=== PATIENT | male | born 1940 | race Caucasian/White ===

== ENCOUNTER 2016-09-02 10:32 | Observation (INO) | payer MEDICARE, BC ==
[~2016-09-02] VITALS: Ht 185.4 cm; Wt 111.0 kg
[2016-09-02 10:34] VITALS: BP 187/87; PULSE 65; RESP 17; TEMP 98.2; O2SAT 98
[2016-09-02 12:08] VITALS: BP 200/94; PULSE 63; RESP 24; O2SAT 99
[2016-09-02] MEDS ORDERED: SODIUM CHLORIDE 0.9% FLUSH 10 ML FLUSH IVF PRN (12:15)
[2016-09-02] MEDS ORDERED: ASPIRIN 81 MG CHEW TAB PO ONE (12:15)
[2016-09-02] MEDS ORDERED: RANI150T PO (12:17)
[2016-09-02] MEDS ORDERED: ASPI325T PO (12:17)
[2016-09-02] MEDS ORDERED: TAMS0.4C4 PO (12:17)
[2016-09-02] MEDS ORDERED: KOMB5TAB2 PO (12:17)
[2016-09-02] MEDS ORDERED: PIOG15TA5 PO ×2 (12:17)
[2016-09-02] MEDS ORDERED: ATOR10TA15 PO (12:17)
[2016-09-02] MEDS ORDERED: BENA10TA PO (12:17)
--- NOTE | 2016-09-02 12:22 | PD ---
HPI Chief Complaint: Cardiac Complaint Time Seen by Provider: 11:55 Travel History International Travel<30 days: No Contact w/Intl Traveler<30days: No Traveled to known affect area: No History of Present Illness HPI The patient is a 76-year-old male who presents emergency department for admission to the chest pain Center. The patient states over the last several days he has had increasing shortness of breath with exertion, lightheadedness, dizziness, and increasing fatigue. The patient states his symptoms are worse with exertion and mildly alleviated at rest. He denies any chest pain accompanying the shortness of breath. He does have a history of hypertension, hyperlipidemia, diabetes, but denies any known history of coronary artery disease. The patient was seen by his physician earlier today, Dr. Kunal Toth, who referred him to the emergency department for admission to the chest pain Center. The patient denies any current chest pain, but does note exertional shortness of breath. Patient also states he was flushed with his exertional shortness of breath, but denies any actual diaphoresis, nausea, vomiting, or abdominal pain. PFSH Past Medical History Diabetes: Yes Patient Takes Glucophage: Yes Hypertension: Yes Influenza Vaccination: Yes Past Surgical History Other Surgery: Yes (HEMORRHOIDECTOMY) Social History Alcohol Use: No Tobacco Use: No Substance Use: No Allergies-Medications (Allergen,Severity, Reaction): Coded Allergies: No Known Allergies (Unverified , 09/02/16) Reported Meds & Prescriptions Reported Meds & Active Scripts Active Reported Tamsulosin (Tamsulosin HCl) 0.4 Mg Cap 0.4 Mg PO DAILY Pioglitazone (Pioglitazone HCl) 15 Mg Tab 15 Mg PO HS Pioglitazone (Pioglitazone HCl) 15 Mg Tab 15 Mg PO DAILY Atorvastatin (Atorvastatin Calcium) 10 Mg Tab 10 Mg PO DAILY Benazepril (Benazepril HCl) 10 Mg Tab 10 Mg PO HS Kombiglyze Xr (Saxagliptin-Metformin ER) 5-1,000 Mg Tab 1 Tab PO HS Ranitidine (Ranitidine HCl) 150 Mg Tab 150 Mg PO BID Aspirin 325 Mg Tab 325 Mg PO DAILY Review of Systems Except as stated in HPI: all other systems reviewed are Neg General / Constitutional: No: Fever HENT: Positive: Lightheadedness Cardiovascular: Positive: Dyspnea on exertion, No: Chest Pain or Discomfort, Diaphoresis Respiratory: Positive: Shortness of Breath Gastrointestinal: No: Nausea, Vomiting, Abdominal Pain Musculoskeletal: No: Edema Neurologic: Positive: Dizziness Physical Exam Narrative GENERAL: Awake, alert, very pleasant 76-year-old male who appears his stated age and is in no acute respiratory distress. SKIN: Focused skin assessment warm/dry. HEAD: Atraumatic. Normocephalic. EYES: Pupils equal and round. No scleral icterus. No injection or drainage. ENT: No nasal bleeding or discharge. Mucous membranes pink and moist. NECK: Trachea midline. No JVD. CARDIOVASCULAR: Regular rate and rhythm. No murmur appreciated. RESPIRATORY: No accessory muscle use. Clear to auscultation. Breath sounds equal bilaterally. GASTROINTESTINAL: Abdomen soft, non-tender, nondistended. No rebound tenderness. MUSCULOSKELETAL: No obvious deformities. No clubbing. No cyanosis. No edema. NEUROLOGICAL: Awake and alert. No obvious cranial nerve deficits. Motor grossly within normal limits. Normal speech. PSYCHIATRIC: Appropriate mood and affect; insight and judgment normal. Data Data Last Documented VS Vital Signs Date Time Temp Pulse Resp B/P Pulse Ox O2 Delivery O2 Flow Rate FiO2 09/02/16 12:24 70 17 181/89 98 Room Air 09/02/16 10:34 98.2 Orders Electrocardiogram (09/02/16 ) Electrocardiogram (09/02/16 12:09) B-Type Natriuretic Peptide (09/02/16 12:09) Ckmb (Isoenzyme) Profile (09/02/16 12:09) Complete Blood Count With Diff (09/02/16 12:09) Comprehensive Metabolic Panel (09/02/16 12:09) Magnesium (Mg) (09/02/16 12:09) Prothrombin Time / Inr (Pt) (09/02/16 12:09) Act Partial Throm Time (Ptt) (09/02/16 12:09) Troponin I (09/02/16 12:09) Chest, Single Ap (09/02/16 12:09) Ecg Monitoring (09/02/16 12:09) Bilateral Bp Monitoring (09/02/16 12:09) Iv Access Insert/Monitor (09/02/16 12:09) Oximetry (09/02/16 12:09) Oxygen Administration (09/02/16 12:09) Aspirin Chew (Aspirin Chew) (09/02/16 12:15) Sodium Chloride 0.9% Flush (Ns Flush) (09/02/16 12:15) Labs Laboratory Tests Test 09/02/16 12:15 White Blood Count 6.2 TH/MM3 Red Blood Count 4.59 MIL/MM3 Hemoglobin 14.1 GM/DL Hematocrit 42.3 % Mean Corpuscular Volume 92.1 FL Mean Corpuscular Hemoglobin 30.7 PG Mean Corpuscular Hemoglobin 33.4 % Concent Red Cell Distribution Width 12.9 % Platelet Count 188 TH/MM3 Mean Platelet Volume 7.8 FL Neutrophils (%) (Auto) 68.5 % Lymphocytes (%) (Auto) 19.2 % Monocytes (%) (Auto) 8.7 % Eosinophils (%) (Auto) 2.8 % Basophils (%) (Auto) 0.8 % Neutrophils # (Auto) 4.3 TH/MM3 Lymphocytes # (Auto) 1.2 TH/MM3 Monocytes # (Auto) 0.5 TH/MM3 Eosinophils # (Auto) 0.2 TH/MM3 Basophils # (Auto) 0.1 TH/MM3 CBC Comment DIFF FINAL Differential Comment Prothrombin Time 11.3 SEC Prothromb Time International 1.0 RATIO Ratio Activated Partial 28.9 SEC Thromboplast Time Sodium Level 137 MEQ/L Potassium Level 3.8 MEQ/L Chloride Level 103 MEQ/L Carbon Dioxide Level 26.5 MEQ/L Anion Gap 8 MEQ/L Blood Urea Nitrogen 12 MG/DL Creatinine 0.88 MG/DL Estimat Glomerular Filtration 84 ML/MIN Rate Random Glucose 129 MG/DL Calcium Level 9.1 MG/DL Magnesium Level 1.9 MG/DL Total Bilirubin 0.5 MG/DL Aspartate Amino Transf 13 U/L (AST/SGOT) Alanine Aminotransferase 23 U/L (ALT/SGPT) Alkaline Phosphatase 58 U/L Total Creatine Kinase 88 U/L Troponin I LESS THAN 0.02 NG/ML Total Protein 7.6 GM/DL Albumin 4.0 GM/DL [facility] Medical Decision Making Medical Screen Exam Complete: Yes Emergency Medical Condition: Yes Medical Record Reviewed: Yes Interpretation(s) EKG reveals normal sinus rhythm with a rate of 64. Inverted T-wave noted in lead aVL. Last Impressions Chest X-Ray 09/02/16 1209 Signed Impressions: Service Date/Time: Friday, September 02, 2016 12:25 - CONCLUSION: No acute disease. Cam Jha MD Laboratory Tests Test 09/02/16 12:15 White Blood Count 6.2 TH/MM3 Red Blood Count 4.59 MIL/MM3 Hemoglobin 14.1 GM/DL Hematocrit 42.3 % Mean Corpuscular Volume 92.1 FL Mean Corpuscular Hemoglobin 30.7 PG Mean Corpuscular Hemoglobin 33.4 % Concent Red Cell Distribution Width 12.9 % Platelet Count 188 TH/MM3 Mean Platelet Volume 7.8 FL Neutrophils (%) (Auto) 68.5 % Lymphocytes (%) (Auto) 19.2 % Monocytes (%) (Auto) 8.7 % Eosinophils (%) (Auto) 2.8 % Basophils (%) (Auto) 0.8 % Neutrophils # (Auto) 4.3 TH/MM3 Lymphocytes # (Auto) 1.2 TH/MM3 Monocytes # (Auto) 0.5 TH/MM3 Eosinophils # (Auto) 0.2 TH/MM3 Basophils # (Auto) 0.1 TH/MM3 CBC Comment DIFF FINAL Differential Comment Prothrombin Time 11.3 SEC Prothromb Time International 1.0 RATIO Ratio Activated Partial 28.9 SEC Thromboplast Time Sodium Level 137 MEQ/L Potassium Level 3.8 MEQ/L Chloride Level 103 MEQ/L Carbon Dioxide Level 26.5 MEQ/L Anion Gap 8 MEQ/L Blood Urea Nitrogen 12 MG/DL Creatinine 0.88 MG/DL Estimat Glomerular Filtration 84 ML/MIN Rate Random Glucose 129 MG/DL Calcium Level 9.1 MG/DL Magnesium Level 1.9 MG/DL Total Bilirubin 0.5 MG/DL Aspartate Amino Transf 13 U/L (AST/SGOT) Alanine Aminotransferase 23 U/L (ALT/SGPT) Alkaline Phosphatase 58 U/L Total Creatine Kinase 88 U/L Troponin I LESS THAN 0.02 NG/ML Total Protein 7.6 GM/DL Albumin 4.0 GM/DL Differential Diagnosis Differential diagnosis includes acute coronary syndrome, cardiomyopathy, congestive heart failure, deconditioning, pulmonary embolism, pleural effusion. Narrative Course IV was established, labs are drawn and sent, and the patient was placed on cardiac telemetry monitoring and continuous pulse oximetry monitoring. EKG was ordered and interpreted. Chest x-ray was obtained. The patient was administered aspirin. The patient's chest x-ray was negative. Patient has inverted T waves noted in lead aVL. Initial troponin was negative. I discussed the patient with the patient's primary physician, Dr. Kunal Toth, who requests admission to the chest pain Center for serial cardiac enzymes and further evaluation by cardiology for a stress test. I discussed the plan of care with the patient who is comfortable with 23 hour observation to chest pain Center. Physician Communication Physician Communication The patient will be a 23 hour observation to the chest pain Center for serial cardiac enzymes and further evaluation by cardiology. Diagnosis Primary Impression: Exertional dyspnea Admitting Information Admitting Physician Requests: Observation Condition: Stable Manuel Newberry MD Sep 02, 2016 12:22
[2016-09-02 12:24] VITALS: BP 181/89; PULSE 70; RESP 17; O2SAT 98
[2016-09-02 12:36] LABS: AUTOMATED NEUTROPHIL # 4.3 TH/MM3 (1.8-7.7); BASOPHIL # 0.1 TH/MM3 (0-0.2); BASOPHIL % 0.8 % (0.0-2.0); EOSINOPHIL # 0.2 TH/MM3 (0-0.4); EOSINOPHIL % 2.8 % (0.0-4.0); HEMATOCRIT 42.3 % (39.0-51.0); HEMO FLAGS DIFF FINAL; LYMPH % 19.2 % (9.0-44.0); LYMPHOCYTE # 1.2 TH/MM3 (1.0-4.8); MEAN CELL VOLUME 92.1 FL (80.0-100.0); MEAN CORPUSCULAR HEMOGLOBIN 30.7 PG (27.0-34.0); MEAN CORPUSCULAR HGB CONC 33.4 % (32.0-36.0); MONO % 8.7 % (0.0-8.0); NEUT % 68.5 % (16.0-70.0); PLATELET COUNT 188 TH/MM3 (150-450); RED BLOOD COUNT 4.59 MIL/MM3 (4.50-5.90); RED CELL DISTRIBUTION WIDTH 12.9 % (11.6-17.2); WHITE BLOOD COUNT 6.2 TH/MM3 (4.0-11.0)
[2016-09-02 12:46] LABS: ALT (GPT) 23 U/L (12-78); ANION GAP 8 MEQ/L (5-15); APTT (PATIENT) 28.9 SEC (24.3-30.1); AST (GOT) 13 U/L (15-37); BICARBONATE 26.5 MEQ/L (21.0-32.0); BLOOD UREA NITROGEN 12 MG/DL (7-18); CHLORIDE 103 MEQ/L (98-107); GLOMERULAR FILTRATION RATE 84 ML/MIN (>89); MAGNESIUM 1.9 MG/DL (1.5-2.5); POTASSIUM 3.8 MEQ/L (3.5-5.1); PROTHROMBIN TIME - PATIENT 11.3 SEC (9.8-11.6); SODIUM (NA) 137 MEQ/L (136-145)
[2016-09-02 12:49] LABS: ALKALINE PHOSPHATASE 58 U/L (45-117); TOTAL BILIRUBIN ADULT 0.5 MG/DL (0.2-1.0)
--- NOTE | 2016-09-02 12:49 | RADRPT ---
EXAM DATE/TIME: 09/02/2016 12:25 [facility] COMPARISON: No previous studies available for comparison. INDICATIONS : Chest pain. MEDICAL HISTORY : None. SURGICAL HISTORY : None. ENCOUNTER: Initial ACUITY: 2 days PAIN SCORE: 5/10 LOCATION: Bilateral chest FINDINGS: A single view of the chest demonstrates the lungs to be symmetrically aerated without evidence of mas s, infiltrate or effusion. The cardiomediastinal contours are unremarkable. Osseous structures are intact. CONCLUSION: No acute disease. Cam Jha MD on September 02, 2016 at 12:47 Board Certified Radiologist. This report was verified electronically.
[2016-09-02 12:50] LABS: CREATINE KINASE 88 U/L (39-308)
[2016-09-02 13:59] VITALS: BP 178/82; PULSE 58; RESP 14; O2SAT 98
--- NOTE | 2016-09-02 14:17 | EKG ---
Date Performed: 09/02/2016 Time Performed: 10:57:05 PTAGE: 76 years EKG: Sinus rhythm LEFT ANTERIOR FASCICULAR BLOCK POSSIBLE LATERAL MYOCARDIAL INFARCTION ABNORMAL ECG NO PREVIOUS TRACING DOCTOR: Marcel Sotomayor Interpretating Date/Time 09/02/2016 14:16:57
[2016-09-02] MEDS ORDERED: BENA5TAB PO (14:26)
[2016-09-02] MEDS ORDERED: PANTOPRAZOLE SOD 40 MG DELAYED RELEASE TAB PO SCH (14:30)
[2016-09-02] MEDS ORDERED: SODIUM CHLORIDE 0.9% FLUSH 5 ML FLUSH IVF PRN (14:30)
[2016-09-02] MEDS ORDERED: ACETAMINOPHEN 500 MG CPLT PO PRN (14:30)
[2016-09-02] MEDS ORDERED: ALPRAZolam 0.25 MG TAB PO PRN (14:30)
[2016-09-02] MEDS ORDERED: ACETAMINOPHEN/HYDROcodone 325 MG/7.5 MG TAB PO PRN (14:30)
[2016-09-02] MEDS ORDERED: ONDANSETRON HCL 4 MG/2 ML VIAL IV PRN (14:30)
[2016-09-02] MEDS ORDERED: LISINOPRIL 5 MG TAB PO SCH (14:45)
--- NOTE | 2016-09-02 14:45 | HHI.HP ---
[facility] Primary Care Physician Kunal Toth MD Chief Complaint Shortness of breath with exertion History of Present Illness This is a 76-year-old male with history of hypertension, hyperlipidemia, and diabetes presents to the ED at the request of his primary care physician Dr. Kunal Toth to be admitted to the chest pain center. He states that for the last 2 days he's had dyspnea on exertion. His exertion is walking inside of his house. He states it is unusual for him to be short of breath with activity. He also states that for the past month he's been fatigued. Denies nausea or diaphoresis but states that yesterday his face felt flushed. Denies recent illness. Denies fevers or chills. Denies recent travel. Review of Systems General: Patient denies fevers, chills recent, and recent travel HEENT: Patient denies headache, sore throat, difficulty swallowing. Cardiovascular: Has the chest discomfort as mentioned above. Denies sensation of heart beating rapidly or irregularly. No syncope. Denies diaphoresis. Respiratory: Complains dyspnea on exertion. Denies coughing wheezing or hemoptysis. GI: Patient denies nausea, vomiting, diarrhea, abdominal pain, bloody stools. Musculoskeletal: Patient denies joint pain or edema. Denies calf pain or edema. Neurovascular: Patient denies numbness, tingling, weakness in extremities. Denies headache. Endocrine: Denies polyuria and polydipsia. Hematologic: Denies easy bruising. Skin: Denies rash or itching. Past Family Social History Allergies: Coded Allergies: No Known Allergies (Unverified , 09/02/16) Past Medical History Hypertension, diabetes, hyperlipidemia. Denies CAD. Past Surgical History Noncontributory. Reported Medications Reported Meds & Active Scripts Active Reported Benazepril (Benazepril HCl) 5 Mg Tab 5 Mg PO BID Tamsulosin (Tamsulosin HCl) 0.4 Mg Cap 0.4 Mg PO DAILY Pioglitazone (Pioglitazone HCl) 15 Mg Tab 15 Mg PO HS Pioglitazone (Pioglitazone HCl) 15 Mg Tab 15 Mg PO DAILY Atorvastatin (Atorvastatin Calcium) 10 Mg Tab 10 Mg PO DAILY Kombiglyze Xr (Saxagliptin-Metformin ER) 5-1,000 Mg Tab 1 Tab PO HS Ranitidine (Ranitidine HCl) 150 Mg Tab 150 Mg PO BID Aspirin 325 Mg Tab 325 Mg PO DAILY Active Ordered Medications Current Medications Medications (Trade) Dose Ordered Sig/Earl Route Start Time Stop Time Status Last Admin (NS Flush) 2 ml UNSCH PRN IVF 09/02/16 12:15 Family History His father at age 64 of a myocardial infarction. Social History Patient is a nonsmoker. Denies alcohol or illicit drug use. He is . Physical Exam Vital Signs Vital Signs Date Time Temp Pulse Resp B/P Pulse Ox O2 Delivery O2 Flow Rate FiO2 09/02/16 13:59 58 14 178/82 98 Room Air 09/02/16 12:24 70 17 181/89 98 Room Air 09/02/16 12:08 63 24 200/94 99 Room Air 09/02/16 10:34 98.2 65 17 187/87 98 Physical Exam GENERAL: This is a well-nourished, well-developed patient, in no apparent distress. Patient speaks in clear complete sentences. Patient is pleasant. HEENT: Head is atraumatic and normocephalic. Neck is supple without lymphadenopathy and trachea is midline. No JVD or carotid bruits. CARDIOVASCULAR: Regular rate and rhythm without murmurs, gallops, or rubs. RESPIRATORY: Clear to auscultation. Breath sounds equal bilaterally. No wheezes , rales, or rhonchi. Chest wall is nontender. No use of accessory muscles. GASTROINTESTINAL: Abdomen is nontender, nondistended. Abdomen soft. No obvious pulsatile mass or bruit. No CVA tenderness. Strong femoral pulses bilaterally. Normal bowel sounds in all quadrants. MUSCULOSKELETAL: Patient is moving upper and lower extremities freely. No calf tenderness or edema, no Homans sign. Strong pulses in upper and lower extremities. NEUROLOGICAL: Patient is alert and oriented. Cranial nerves 2-12 are grossly intact. No focal deficits and speech is clear. SKIN: No rash and turgor is normal. Laboratory Laboratory Tests Test 09/02/16 12:15 White Blood Count 6.2 Red Blood Count 4.59 Hemoglobin 14.1 Hematocrit 42.3 Mean Corpuscular Volume 92.1 Mean Corpuscular Hemoglobin 30.7 Mean Corpuscular Hemoglobin 33.4 Concent Red Cell Distribution Width 12.9 Platelet Count 188 Mean Platelet Volume 7.8 Neutrophils (%) (Auto) 68.5 Lymphocytes (%) (Auto) 19.2 Monocytes (%) (Auto) 8.7 Eosinophils (%) (Auto) 2.8 Basophils (%) (Auto) 0.8 Neutrophils # (Auto) 4.3 Lymphocytes # (Auto) 1.2 Monocytes # (Auto) 0.5 Eosinophils # (Auto) 0.2 Basophils # (Auto) 0.1 CBC Comment DIFF FINAL Differential Comment Prothrombin Time 11.3 Prothromb Time International 1.0 Ratio Activated Partial 28.9 Thromboplast Time Sodium Level 137 Potassium Level 3.8 Chloride Level 103 Carbon Dioxide Level 26.5 Anion Gap 8 Blood Urea Nitrogen 12 Creatinine 0.88 Estimat Glomerular Filtration 84 Rate Random Glucose 129 Calcium Level 9.1 Magnesium Level 1.9 Total Bilirubin 0.5 Aspartate Amino Transf 13 (AST/SGOT) Alanine Aminotransferase 23 (ALT/SGPT) Alkaline Phosphatase 58 Total Creatine Kinase 88 Troponin I LESS THAN 0.02 B-Type Natriuretic Peptide 90 Total Protein 7.6 Albumin 4.0 Result Diagram: 09/02/16 1215 09/02/16 1215 Imaging Last 24 hours Impressions Chest X-Ray 09/02/16 1209 Signed Impressions: Service Date/Time: Friday, September 02, 2016 12:25 - CONCLUSION: No acute disease. aCm Jha MD Course Initial EKG has sinus rhythm without significant ST segment depressions or elevations. Assessment and Plan Assessment and Plan * Dyspnea on exertion: Patient denies chest discomfort. Initial troponin is normal. Patient has been seen by Dr. Byron Diego of cardiology in the chest pain center and will undergo a Lexiscan . We also will get a d-dimer. If these results are normal he'll be discharged home with instructions to follow- up with his PCP. * Hypertension: Patient did not take his medication this morning. This will be restarted. * Hyperlipidemia: Continue current medications. * Diabetes: We'll hold oral medication and cover with sliding scale insulin coverage. He will resume his medication discharge. Follow a diabetic diet. Patient is agreeable to this plan. Stable at this time. Ryder Meraz Sep 02, 2016 14:45
[2016-09-02] MEDS ORDERED: REGADENOSON INJ 0.4 MG/5 ML SYR ONE (15:47)
--- NOTE | 2016-09-02 17:02 | HHI.DCPOC ---
Discharge Care Plan Diagnosis: (1) Dyspnea on exertion (2) Hypertension (3) DM (diabetes mellitus) (4) Hyperlipidemia Goals to Promote Your Health * To prevent worsening of your condition and complications * To maintain your health at the optimal level Directions to Meet Your Goals Take your medications as prescribed Follow your dietary instruction Follow activity as directed Keep your appointments as scheduled Take your immunizations and boosters as scheduled If your symptoms worsen call your PCP, if no PCP go to Urgent Care Center or Emergency Room Smoking is Dangerous to Your Health. Avoid second hand smoke Call the 24-hour hour crisis hotline for domestic abuse at Ryder Meraz Sep 02, 2016 17:02
[2016-09-02 17:30] VITALS: BP 167/82; PULSE 67; RESP 16; TEMP 97.9; O2SAT 96
--- NOTE | 2016-09-02 17:37 | RADRPT ---
EXAM DATE/TIME: 09/02/2016 15:36 [facility] COMPARISON: No previous studies available for comparison. INDICATIONS : Dyspnea with exertion, lightheadedness, dizziness and fatigue for several days. Abnormal EKG. DOSE: 35.0 mCi Tc99m Myoview at stress. 8.7 mCi Tc99m Myoview at rest. 0.4 mg Lexiscan STRESS SYMPTOMS: Dyspnea. EJECTION FRACTION: 57% MEDICAL HISTORY : Hypertension. Hypercholesterolemia. Diabetes mellitus type 2. SURGICAL HISTORY : Hemorrhoidectomy. ENCOUNTER: Initial ACUITY: 4 - 6 days PAIN SCALE: 0/10 LOCATION: chest TECHNIQUE: The patient underwent pharmacologic stress with infusion of prescribed dose. Continuous ECG tracing was monitored during stress. Gated SPECT imaging was performed after stress and conventional SPECT i maging was performed at rest. The examination was performed on a SPECT/CT scanner, both attenuation and non-corrected datasets were reviewed. FINDINGS: DISTRIBUTION: The maximum perfused segment at stress is in the inferior wall. The summed stress score equals zero. PERFUSION STUDY: The pattern of perfusion at stress is within normal limits. GATED STUDY: There is intact wall motion and thickening without hypokinetic or dyskinetic segments. CONCLUSION: 1. No fixed or reversible wall defects to suggest ischemia or infarction. 2. Normal wall motion and calculated ejection fraction. RISK CATEGORY: Low (<1% Annual Mortality Rate) Felton Luque MD on September 02, 2016 at 17:32 Board Certified Radiologist. This report was verified electronically.
[2016-09-02 18:00] VITALS: PULSE 75
[2016-09-02] MEDS ORDERED: SODIUM CHLORIDE 0.9% FLUSH 5 ML FLUSH IVF SCH (21:00)
[2016-09-03] MEDS ORDERED: ASPIRIN 325 MG TAB PO SCH ×2 (09:00)
[2016-09-03] MEDS ORDERED: TAMSULOSIN HCL 0.4 MG CAP PO SCH (09:00)
[2016-09-03] MEDS ORDERED: ATORVASTATIN 10 MG TAB PO SCH (09:00)
--- NOTE | 2016-09-03 09:53 | EKG ---
Date Performed: 09/02/2016 Time Performed: 15:16:34 PTAGE: 76 years EKG: SINUS BRADYCARDIA LEFT ANTERIOR FASCICULAR BLOCK LEFT VENTRICULAR HYPERTROPHY AND ST-T SOMERS GE PROBABLE LATERAL MYOCARDIAL INFARCTION ABNORMAL ECG PREVIOUS TRACING : 09/02/2016 10.57 Since previous tracing, no significant change noted DOCTOR: Kayli Arreola Interpretating Date/Time 09/03/2016 09:53:02
--- NOTE | 2016-09-03 09:54 | TR ---
Date Performed: 09/02/2016 Time Performed: 16:19:09 DOCTOR: Kayli Arreola DRUG LIST: CLINICAL HISTORY: REASON FOR TEST: REASON FOR ENDING: OBSERVATION: CONCLUSION: Lexiscan stress test was performed under standard four minute protocol. Radionuclid e was injected one minute prior to ending the test. No electrocardiographic abormalities were present to suggest ischemia. Nuclear imaging and interpretation are pending. COMMENTS:
== END 2016-09-02 19:39 | disposition home or self-care (01) ==
LOC: NEPC 10:32 → NEDA 13:04 → NEPHCDU 17:28
PROVIDERS: ADMIT Internal Medicine Cardiovascular Disease; ATTEND Internal Medicine Cardiovascular Disease
DX: R06.09 Other forms of dyspnea (principal); R94.31 Abnormal electrocardiogram [ECG] [EKG]; R53.83 Other fatigue; I10 Essential (primary) hypertension; E78.5 Hyperlipidemia, unspecified; E11.9 Type 2 diabetes mellitus without complications; Z79.82 Long term (current) use of aspirin
CPT/HCPCS: 71010; 78452; 80053; 82550; 83735; 83880; 84484; 85025; 85379; 85610; 85730; 93005; 93017; 99285; A9502; G0378; J2785

== ENCOUNTER 2016-09-14 11:41 | Inpatient (IN) | payer MEDICARE, BC ==
[2016-09-14] VITALS (7 sets, daily range): BP systolic 105–155; BP diastolic 61–114; PULSE 66–141; RESP 18–24; TEMP 97.5–98.7; O2SAT 95–98
[~2016-09-14] VITALS: Ht 185.4 cm; Wt 114.4 kg
[~2016-09-14 11:41] MED LIST: ASPI325T PO; ATOR10TA15 PO; BENA5TAB PO; KOMB5TAB2 PO; PIOG15TA5 PO; RANI150T PO; TAMS0.4C4 PO
--- NOTE | 2016-09-14 11:47 | PD ---
Physical Exam Date Seen by Provider: September 14, 2016 Time Seen by Provider: 11:45 Narrative 76 year old male presents to the emergency department for evaluation of SOB and bloating that started this morning. Reports history of irregular heart beat. Patient states recently started on metoprolol. No chest pain. He has an appointment with Dr. Espinal on Friday. Vital signs reviewed. Patient seen in triage, awaiting bed placement. Data Data Last Documented VS Vital Signs Date Time Temp Pulse Resp B/P Pulse Ox O2 Delivery O2 Flow Rate FiO2 09/14/16 11:44 97.5 126 24 112/79 97 Room Air [facility] [place] Supervised Visit with SMILEY: Shannon Sanchez September 14, 2016 11:47
[2016-09-14] MEDS ORDERED: SODIUM CHLORIDE 0.9% FLUSH 10 ML FLUSH IVF PRN (12:00)
[2016-09-14 12:28] LABS: BASOPHIL # 0.1 TH/MM3 (0-0.2); BASOPHIL % 0.7 % (0.0-2.0); EOSINOPHIL # 0.1 TH/MM3 (0-0.4); EOSINOPHIL % 1.9 % (0.0-4.0); HEMATOCRIT 36.4 % (39.0-51.0); HEMO FLAGS DIFF FINAL; LYMPH % 10.2 % (9.0-44.0); LYMPHOCYTE # 0.8 TH/MM3 (1.0-4.8); MEAN CELL VOLUME 91.5 FL (80.0-100.0); MEAN CORPUSCULAR HEMOGLOBIN 32.2 PG (27.0-34.0); MEAN CORPUSCULAR HGB CONC 35.2 % (32.0-36.0); MONO % 7.3 % (0.0-8.0); NEUT % 79.9 % (16.0-70.0); PLATELET COUNT 195 TH/MM3 (150-450); RED BLOOD COUNT 3.98 MIL/MM3 (4.50-5.90); RED CELL DISTRIBUTION WIDTH 12.8 % (11.6-17.2); WHITE BLOOD COUNT 7.5 TH/MM3 (4.0-11.0)
--- NOTE | 2016-09-14 12:36 | RADRPT ---
EXAM DATE/TIME: 09/14/2016 12:24 [facility] COMPARISON: CHEST SINGLE AP, September 02, 2016, 12:25. INDICATIONS : Chest Pain MEDICAL HISTORY : None. SURGICAL HISTORY : None. ENCOUNTER: Initial ACUITY: 1 day PAIN SCORE: 5/10 LOCATION: Bilateral chest FINDINGS: PA and lateral views of the chest were obtained and demonstrate new streaky interstitial opacities in both lungs. There is mild blunting of the right costophrenic angle. The heart size is at the upper l imits of normal. The bony thorax is intact. CONCLUSION: 1. New mild streaky bilateral interstitial opacities which may represent early or mild pulmonary alexia a. 2. Mild blunting of the right costophrenic angle consistent with a small effusion. Felton Luque MD on September 14, 2016 at 12:33 Board Certified Radiologist. This report was verified electronically.
[2016-09-14 12:37] LABS: APTT (PATIENT) 30.1 SEC (24.3-30.1); INTERNATIONAL NORMALIZED RATIO 1.1 RATIO
[2016-09-14 12:44] LABS: ANION GAP 9 MEQ/L (5-15); BICARBONATE 24.1 MEQ/L (21.0-32.0); BLOOD UREA NITROGEN 16 MG/DL (7-18); CHLORIDE 101 MEQ/L (98-107); GLOMERULAR FILTRATION RATE 78 ML/MIN (>89); MAGNESIUM 1.8 MG/DL (1.5-2.5); POTASSIUM 4.4 MEQ/L (3.5-5.1); SODIUM (NA) 134 MEQ/L (136-145)
[2016-09-14] MEDS ORDERED: DILTIAZEM HCL 25 MG/5 ML VIAL IVP ONE ×2 (12:45→18:45)
[2016-09-14 12:48] LABS: CREATINE KINASE 86 U/L (39-308)
--- NOTE | 2016-09-14 12:51 | PD ---
HPI Chief Complaint: Respiratory Distress Time Seen by Provider: 12:47 Travel History International Travel<30 days: No Contact w/Intl Traveler<30days: No Traveled to known affect area: No History of Present Illness HPI 76 yo male that presents to the ED for evaluation of irregular heart rate, bloating as well as shortness of breath. Per patient she's had this for a couple days. Per patient is more severe today. Per patient he follows regularly with his PCP and he is currently on metoprolol. Per patient he feels like he is having about a reaction to it as he makes him very weak and tired. He continues to take it however. He takes no blood thinners other than aspirin. He has not seen a director of marketing operations for evaluation of any of this and actually supposed to follow with Dr. Espinal cardiology on Friday. Per patient he symptoms got more severe today so he could not wait. Patient denies any actual chest pain. Per patient he feels like his heart is palpitating. He has a history of "irregular rate him "in the past but he's never been admitted or evaluated for it other than taking the metoprolol. He does tell me that he was seen here last week for evaluation of chest pain center and he had a negative stress test at that time. He denies any recent travel. No injuries. No allergies to medication. PFSH Past Medical History Cardiac Catheterization: No Cardiovascular Problems: Yes High Cholesterol: Yes Congestive Heart Failure: No Cerebrovascular Accident: Yes (A FIB) Diabetes: Yes Hypertension: Yes Past Surgical History Coronary Artery Bypass Graft: No Other Surgery: Yes (HEMORRHOIDECTOMY) Social History Alcohol Use: No Tobacco Use: No Substance Use: No Allergies-Medications (Allergen,Severity, Reaction): Coded Allergies: No Known Allergies (Unverified , 09/14/16) Reported Meds & Prescriptions Reported Meds & Active Scripts Active Reported Benazepril (Benazepril HCl) 5 Mg Tab 5 Mg PO BID Tamsulosin (Tamsulosin HCl) 0.4 Mg Cap 0.4 Mg PO DAILY Pioglitazone (Pioglitazone HCl) 15 Mg Tab 15 Mg PO HS Pioglitazone (Pioglitazone HCl) 15 Mg Tab 15 Mg PO DAILY Atorvastatin (Atorvastatin Calcium) 10 Mg Tab 10 Mg PO DAILY Kombiglyze Xr (Saxagliptin-Metformin ER) 5-1,000 Mg Tab 1 Tab PO HS Ranitidine (Ranitidine HCl) 150 Mg Tab 150 Mg PO BID Aspirin 325 Mg Tab 325 Mg PO DAILY Review of Systems Except as stated in HPI: all other systems reviewed are Neg Physical Exam Narrative GENERAL: SKIN: Warm and dry. HEAD: Atraumatic. Normocephalic. EYES: Pupils equal and round. No scleral icterus. No injection or drainage. ENT: No nasal bleeding or discharge. Mucous membranes pink and moist. Tongue is midline. No uvula deviation. NECK: Trachea midline. No JVD. CARDIOVASCULAR: Irregular rate and rhythm. No murmurs, S3, S4. RESPIRATORY: No accessory muscle use. Clear to auscultation. Breath sounds equal bilaterally. GASTROINTESTINAL: Abdomen soft, non-tender, nondistended. Hepatic and splenic margins not palpable. MUSCULOSKELETAL: Extremities without clubbing, cyanosis, or edema. No obvious deformities. Full range of motion of the upper and lower extremities bilaterally. 2+ pulses bilaterally. NEUROLOGICAL: Awake and alert. No obvious cranial nerve deficits. Motor grossly within normal limits. Five out of 5 muscle strength in the arms and legs. Normal speech. PSYCHIATRIC: Appropriate mood and affect; insight and judgment normal. Data Data Last Documented VS Vital Signs Date Time Temp Pulse Resp B/P Pulse Ox O2 Delivery O2 Flow Rate FiO2 09/14/16 13:20 71 18 105/61 98 09/14/16 12:53 Room Air 09/14/16 11:44 97.5 Orders Complete Blood Count With Diff (09/14/16 11:49) Basic Metabolic Panel (Bmp) (09/14/16 11:49) B-Type Natriuretic Peptide (09/14/16 11:49) Act Partial Throm Time (Ptt) (09/14/16 11:49) Prothrombin Time / Inr (Pt) (09/14/16 11:49) Magnesium (Mg) (09/14/16 11:49) Ckmb (Isoenzyme) Profile (09/14/16 11:49) Troponin I (09/14/16 11:49) Iv Access Insert/Monitor (09/14/16 11:49) Electrocardiogram (09/14/16 11:49) Ecg Monitoring (09/14/16 11:49) Oximetry (09/14/16 11:49) Oxygen Administration (09/14/16 11:49) Chest, Pa & Lat (09/14/16 11:49) Sodium Chloride 0.9% Flush (Ns Flush) (09/14/16 12:00) Thyroid Stimulating Hormone (09/14/16 12:32) Diltiazem Inj (Cardizem Inj) (09/14/16 12:45) Labs Laboratory Tests Test 09/14/16 12:00 White Blood Count 7.5 TH/MM3 Red Blood Count 3.98 MIL/MM3 Hemoglobin 12.8 GM/DL Hematocrit 36.4 % Mean Corpuscular Volume 91.5 FL Mean Corpuscular Hemoglobin 32.2 PG Mean Corpuscular Hemoglobin 35.2 % Concent Red Cell Distribution Width 12.8 % Platelet Count 195 TH/MM3 Mean Platelet Volume 8.4 FL Neutrophils (%) (Auto) 79.9 % Lymphocytes (%) (Auto) 10.2 % Monocytes (%) (Auto) 7.3 % Eosinophils (%) (Auto) 1.9 % Basophils (%) (Auto) 0.7 % Neutrophils # (Auto) 6.0 TH/MM3 Lymphocytes # (Auto) 0.8 TH/MM3 Monocytes # (Auto) 0.5 TH/MM3 Eosinophils # (Auto) 0.1 TH/MM3 Basophils # (Auto) 0.1 TH/MM3 CBC Comment DIFF FINAL Differential Comment Prothrombin Time 12.0 SEC Prothromb Time International 1.1 RATIO Ratio Activated Partial 30.1 SEC Thromboplast Time Sodium Level 134 MEQ/L Potassium Level 4.4 MEQ/L Chloride Level 101 MEQ/L Carbon Dioxide Level 24.1 MEQ/L Anion Gap 9 MEQ/L Blood Urea Nitrogen 16 MG/DL Creatinine 0.94 MG/DL Estimat Glomerular Filtration 78 ML/MIN Rate Random Glucose 206 MG/DL Calcium Level 8.8 MG/DL Magnesium Level 1.8 MG/DL Total Creatine Kinase 86 U/L Troponin I LESS THAN 0.02 NG/ML B-Type Natriuretic Peptide 459 PG/ML MDM Medical Decision Making Medical Screen Exam Complete: Yes Emergency Medical Condition: Yes Medical Record Reviewed: Yes Interpretation(s) EKG shows atrial fibrillation with RVR. No sign of acute ischemia read by me and attending. CBC & BMP Diagram 09/14/16 12:00 troponin and CKMB negative BNP elevated Last Impressions Chest X-Ray 09/14/16 1149 Signed Impressions: Service Date/Time: Wednesday, September 14, 2016 12:24 - CONCLUSION: 1. New mild streaky bilateral interstitial opacities which may represent early or mild pulmonary edema. 2. Mild blunting of the right costophrenic angle consistent with a small effusion. Felton Luque MD Differential Diagnosis A. fib in RVR versus dyspnea versus A. fib versus [place] versus electrolyte abnormality Narrative Course 76-year-old male that presents to the ED for evaluation of shortness of breath and irregular rhythm. Patient was properly examined and was found to have signs and symptoms very consistent with A. fib and RVR. Case discussed in my attending who agrees with plan. Labs and imaging ordered. Patient was started on cardiazem bolus. Patient was reassessed and his heart rate has improved. Heart rate stays on the 60s and 70s with no changes. Labs and imaging did show what appears to be pulmonary edema and a high BNP. Patient does have some shortness of breath and this is concerning for CHF. Patient has no history of CHF in the past. And has never had A. fib with RVR. I recommend admission for this. This was discussed with my attending Dr. Ledezma who is in agreement with this plan. Residents were paged. Dr. Jerome agrees to admission. Patient was admitted to Dr. Bruce. Procedures EKG Prior to Arrival: No Diagnosis Primary Impression: Atrial fibrillation with RVR Additional Impression: CHF (congestive heart failure) Qualified Code: I50.9 - Acute congestive heart failure, unspecified congestive heart failure type Admitting Information Admitting Physician Requests: Admit Carlos Greene September 14, 2016 12:51
[2016-09-14] MEDS ORDERED: METO25TA3 PO (13:40)
--- NOTE | 2016-09-14 14:08 | HHI.HP ---
[facility] Service Family Medicine Primary Care Physician Kunal Toth MD Admission Diagnosis acute atrial fibrillation on RVR, acute CHF Diagnoses: International Travel<30 Days: No Contact w/Intl Traveler<30days: No Known Affected Area: No History of Present Illness This is a 76-year-old male with a history concerning for paroxysmal atrial fibrillation. He was seen at [place] for a couple of days beginning September 02. At that time he was admitted to the chest pain center because of exertional dyspnea. He was probably an intermittent atrial fibrillation. He was evaluated with a myocardial perfusion scan which was determined low risk. Since that time complains of continued exertional dyspnea. His had multiple episodes where "he has felt his chest fluttering "and has felt chest pressure. This happened all last weekend. He visited with his PCP, Dr. Toth. He was placed on metoprolol 25 mg by mouth twice a day since Friday. He states he has been taking his medication as prescribed, including this morning. He has been getting more short of breath and feels like the metoprolol makes him more short of breath. But he also states the metoprolol "calms things down." He has not been able to walk to the garage without becoming short of breath. Normally he can walk much further. He also has been feeling weak. He had an appointment with a auto radiator mechanic, Dr. Espinal, this coming Friday. He denies chest pain. Review of Systems Constitutional: DENIES: Fatigue, Fever Eyes: DENIES: Blurred vision, Diplopia Respiratory: COMPLAINS OF: Shortness of breath, DENIES: Apneas, Cough, Sputum production Cardiovascular: COMPLAINS OF: Palpitations, DENIES: Chest pain, Syncope Gastrointestinal: DENIES: Abdominal pain, Black stools, Bloody stools, Constipation, Diarrhea, Nausea, Vomiting Neurologic: DENIES: Abnormal gait, Headache Psychiatric: DENIES: Anxiety, Confusion Past Family Social History Past Medical History Hypertension, diabetes, hyperlipidemia. BPH. Past Surgical History None Reported Medications Reported Meds & Active Scripts Active Reported Metoprolol Tartrate 25 Mg Tab 25 Mg PO BID Benazepril (Benazepril HCl) 5 Mg Tab 10 Mg PO DAILY Tamsulosin (Tamsulosin HCl) 0.4 Mg Cap 0.4 Mg PO DAILY Pioglitazone (Pioglitazone HCl) 15 Mg Tab 15 Mg PO HS Pioglitazone (Pioglitazone HCl) 15 Mg Tab 15 Mg PO DAILY Atorvastatin (Atorvastatin Calcium) 10 Mg Tab 10 Mg PO DAILY Kombiglyze Xr (Saxagliptin-Metformin ER) 5-1,000 Mg Tab 1 Tab PO HS Ranitidine (Ranitidine HCl) 150 Mg Tab 150 Mg PO BID Aspirin 325 Mg Tab 325 Mg PO DAILY Allergies: Coded Allergies: No Known Allergies (Unverified , 09/14/16) Active Ordered Medications Active Medications Diltiazem HCl (Cardizem Inj) 20 mg ONCE ONCE IVP Last administered on 09/14/16t 12:52; Admin Dose 20 MG; Start 09/14/16 at 12:45; Stop 09/14/16 at 12:46; Status DC Sodium Chloride (NS Flush) 2 ml UNSCH PRN IVF; Start 09/14/16 at 12:00 Family History Mom: [place] Dad: of [place] at 64. alcoholic Social History Tobacco: never Alcohol: never Illicit: none Physical Exam Vital Signs Vital Signs Date Time Temp Pulse Resp B/P Pulse Ox O2 Delivery O2 Flow Rate FiO2 09/14/16 13:44 90 18 139/83 98 09/14/16 13:20 71 18 105/61 98 09/14/16 12:53 98 09/14/16 12:53 98 Room Air 09/14/16 12:52 141 18 154/114 98 09/14/16 11:44 97.5 126 24 112/79 97 Room Air Physical Exam GENERAL: This is a well-nourished, well-developed patient, in no apparent distress. SKIN: No rashes, ecchymoses or lesions. Cool and dry. HEAD: Atraumatic. Normocephalic. No temporal or scalp tenderness. EYES: Pupils equal round and reactive. Extraocular motions intact. No scleral icterus. No injection or drainage. ENT: Nose without bleeding, purulent drainage or septal hematoma. Throat without erythema, tonsillar hypertrophy or exudate. Uvula midline. Airway patent. NECK: Trachea midline. No JVD or lymphadenopathy. Supple, nontender, no meningeal signs. CARDIOVASCULAR: Irregular rate and rhythm without murmurs, gallops, or rubs. RESPIRATORY: Decreased breath sounds at the bases bilaterally. GASTROINTESTINAL: Abdomen soft, non-tender, nondistended. No hepato-splenomegaly , or palpable masses. No guarding. MUSCULOSKELETAL: Extremities without clubbing, cyanosis, or edema. No joint tenderness, effusion, or edema noted. No calf tenderness. Negative Homans sign bilaterally. NEUROLOGICAL: Awake and alert. Cranial nerves II through XII intact. Motor and sensory grossly within normal limits. Five out of 5 muscle strength in all muscle groups. Normal speech. Laboratory Laboratory Tests Test 09/14/16 12:00 White Blood Count 7.5 Red Blood Count 3.98 Hemoglobin 12.8 Hematocrit 36.4 Mean Corpuscular Volume 91.5 Mean Corpuscular Hemoglobin 32.2 Mean Corpuscular Hemoglobin 35.2 Concent Red Cell Distribution Width 12.8 Platelet Count 195 Mean Platelet Volume 8.4 Neutrophils (%) (Auto) 79.9 Lymphocytes (%) (Auto) 10.2 Monocytes (%) (Auto) 7.3 Eosinophils (%) (Auto) 1.9 Basophils (%) (Auto) 0.7 Neutrophils # (Auto) 6.0 Lymphocytes # (Auto) 0.8 Monocytes # (Auto) 0.5 Eosinophils # (Auto) 0.1 Basophils # (Auto) 0.1 CBC Comment DIFF FINAL Differential Comment Prothrombin Time 12.0 Prothromb Time International 1.1 Ratio Activated Partial 30.1 Thromboplast Time Sodium Level 134 Potassium Level 4.4 Chloride Level 101 Carbon Dioxide Level 24.1 Anion Gap 9 Blood Urea Nitrogen 16 Creatinine 0.94 Estimat Glomerular Filtration 78 Rate Random Glucose 206 Calcium Level 8.8 Magnesium Level 1.8 Total Creatine Kinase 86 Troponin I LESS THAN 0.02 B-Type Natriuretic Peptide 459 Result Diagram: 09/14/16 1200 09/14/16 1200 Imaging Last Impressions Chest X-Ray 09/14/16 1149 Signed Impressions: Service Date/Time: Wednesday, September 14, 2016 12:24 - CONCLUSION: 1. New mild streaky bilateral interstitial opacities which may represent early or mild pulmonary edema. 2. Mild blunting of the right costophrenic angle consistent with a small effusion. Felton Luque MD Assessment and Plan Assessment and Plan 76-year-old male with a history concerning for paroxysmal atrial fibrillation over the past 2-3 weeks. Newly found to be in atrial fibrillation with RVR on this admission. Rate controlled with 20 mg IV Cardizem in the ER. Chest x-ray concerning for pulmonary edema Plan as below. Code Status FULL Problem List: (1) Atrial fibrillation with RVR Status: Acute Plan: Currently rate controlled after IV Cardizem. Cardiology consulted; he does have outpatient follow-up on Friday with Dr. Teddy CARUSO2VASC score of 4 Continue Cardizem 30 mg by mouth 4 times a day Lovenox 110 mg twice a day (patient is unsure whether he wants to be on anticoagulation as an outpatient) Cardiac telemetry TSH within normal limits Troponin less than 0.02; trend troponins every 6 hours (1800 and 0000) (2) FEN/PPX Status: Acute Plan: Fluids: Tolerating by mouth Electrolytes: Monitor and replace when necessary Nutrition: Heart healthy diet Prophylaxis: Therapeutic Lovenox as above, SCDs Chronic medical problems: High blood pressure: Continue benazepril CAD: Continue atorvastatin, aspirin Diabetes: Hold by mouth medications. Cover with sliding scale insulin. BPH: Continue Flomax Physician Certification 2 Midnight Certification Type: Admission for Inpatient Services Order for Inpatient Services The services are ordered in accordance with Medicare regulations or non- Medicare payer requirements, as applicable. In the case of services not specified as inpatient-only, they are appropriately provided as inpatient services in accordance with the 2-midnight benchmark. Estimated LOS (days): 2 days is the estimated time the patient will need to remain in the hospital, assuming treatment plan goals are met and no additional complications. Post-Hospital Plan: Home Adriel Jerome MD R2 September 14, 2016 14:08
[2016-09-14] MEDS ORDERED: SODIUM CHLORIDE 0.9% FLUSH 10 ML FLUSH IV FLUSH PRN (14:45)
[2016-09-14] MEDS ORDERED: ACETAMINOPHEN 325 MG TAB PO PRN (14:45)
[2016-09-14] MEDS ORDERED: ONDANSETRON HCL 4 MG/2 ML VIAL IVP PRN (14:45)
[2016-09-14] MEDS ORDERED: MAGNESIUM HYDROXIDE SUSP 30 ML CUP PO PRN (14:45)
[2016-09-14] MEDS ORDERED: HEPARIN SODIUM - SQ 10,000 UNITS/ML VIAL SQ SCH (15:00)
[2016-09-14] MEDS ORDERED: hydrALAZINE HCL 10 MG TAB PO PRN (15:00)
[2016-09-14] MEDS ORDERED: FUROSEMIDE 40 MG/4 ML VIAL IV PUSH ONE (15:00)
[2016-09-14] MEDS ORDERED: GLUCAGON 1 MG/ML VIAL OTHER PRN (15:15)
[2016-09-14] MEDS ORDERED: DEXTROSE 50% IN WATER 50 ML VIAL(D50) IV PUSH PRN (15:15)
[2016-09-14] MEDS: INSULIN NovoLIN REGULAR SUPPLEMENTAL SCALE SQ SCH ×2 (16:00→20:16)
[2016-09-14] MEDS: DILTIAZEM HCL 30 MG TAB PO SCH ×3 (17:51→20:17)
[2016-09-14] MEDS: ENOXAPARIN SODIUM 100 MG/ML SYRINGE SQ SCH (17:52)
[2016-09-14] MEDS ORDERED: DILTIAZEM INJ 125 MG in SODIUM CHLORIDE 0.9% INJ 100 ML IV SCH (18:45)
[2016-09-14] MEDS: SODIUM CHLORIDE 0.9% FLUSH 10 ML FLUSH IV FLUSH SCH (20:16)
[2016-09-14] MEDS: FAMOTIDINE 20 MG TAB PO SCH (20:16)
--- NOTE | 2016-09-14 21:38 | EKG ---
Date Performed: 09/14/2016 Time Performed: 17:25:10 PTAGE: 76 years EKG: ATRIAL FIBRILLATION WITH RAPID VENTRICULAR RESPONSE MARKED LEFT AXIS DEVIATION MODERATE INT RAVENTRICULAR CONDUCTION DELAY NONSPECIFIC ST & T-WAVE ABNORMALITY ABNORMAL ECG PREVIOUS TRACING : 09/14/2016 11.57 DOCTOR: Alberto Meehan Interpretating Date/Time 09/14/2016 21:36:19
--- NOTE | 2016-09-14 21:50 | EKG ---
Date Performed: 09/14/2016 Time Performed: 11:57:30 PTAGE: 76 years EKG: ATRIAL FIBRILLATION WITH RAPID VENTRICULAR RESPONSE LEFT ANTERIOR FASCICULAR BLOCK NONSPECI FIC ST & T-WAVE ABNORMALITY ABNORMAL ECG PREVIOUS TRACING : 09/02/2016 15.16 DOCTOR: Alberto Meehan Interpretating Date/Time 09/14/2016 21:47:21
[2016-09-15] VITALS (8 sets, daily range): BP systolic 113–150; BP diastolic 64–84; PULSE 66–144; RESP 18; TEMP 97.6–98.3; O2SAT 93–96
[2016-09-15] MEDS: ENOXAPARIN SODIUM 100 MG/ML SYRINGE SQ SCH (04:00)
[2016-09-15] MEDS: INSULIN NovoLIN REGULAR SUPPLEMENTAL SCALE SQ SCH ×4 (04:33→20:36)
--- NOTE | 2016-09-15 08:00 | HHI.FPPN ---
Subjective Remarks Pt seen and examined this morning. Reports he did well overnight and was able to get some sleep. States he is feeling better this morning. Abdominal pain improved and denies bloating. Endorses feeling a little weak. Denies CP or SOB. (Ct Smith MD) Objective Vitals Vital Signs Date Time Temp Pulse Resp B/P Pulse Ox O2 Delivery O2 Flow Rate FiO2 09/15/16 04:00 97.9 66 18 116/67 96 09/15/16 00:00 97.9 76 18 113/66 96 09/14/16 21:00 Bi-Pap 09/14/16 20:07 110 09/14/16 20:00 98.7 78 18 140/81 95 09/14/16 15:21 97.9 66 20 155/82 97 09/14/16 13:44 90 18 139/83 98 09/14/16 13:20 71 18 105/61 98 09/14/16 12:53 98 09/14/16 12:53 98 Room Air 09/14/16 12:52 141 18 154/114 98 09/14/16 11:44 97.5 126 24 112/79 97 Room Air I/O 09/14/16 09/14/16 09/14/16 09/15/16 09/15/16 09/15/16 07:00 15:00 23:00 07:00 15:00 23:00 Intake Total 372 ml 282 ml Output Total 125 ml Balance 247 ml 282 ml Intake Oral 360 ml 240 ml IV Total 12 ml 42 ml Output Urine Total 125 ml # Voids 1 2 # Bowel Movements 0 0 (Ct Smith MD) Result Diagram: 09/14/16 1200 09/14/16 1200 Imaging Chest X-Ray 09/14/16 1149 Signed Impressions: Service Date/Time: Wednesday, September 14, 2016 12:24 - CONCLUSION: 1. New mild streaky bilateral interstitial opacities which may represent early or mild pulmonary edema. 2. Mild blunting of the right costophrenic angle consistent with a small effusion. Felton Luque MD Objective Remarks GENERAL: WN, WD male sitting up comfortably in bed in [facility]. SKIN: Warm and dry without rash. HEENT: Pupils equal and round. No nasal drainage. MMM. HEART: Tachycardic with irregularly irregular rhythm. LUNGS: CTAB w/o wheezes or crackles. ABDOMEN: Soft, NT, ND. EXTREMITIES: No LE edema. No calf tenderness. NEURO: Awake and alert. (Ct Smith MD) A/P Assessment and Plan 76 year old male admitted for shortness of breath and found to be in atrial fibrillation with RVR on this admission. BNP mildly elevated and CXR with some pulmonary congestion; shortness of breath improved with diuresis and patient transitioned from Cardizem drip to PO. Discharge Planning Anticipate D/C tomorrow. (Ct Smith MD) Attending Attestation Patient seen and examined. Case reviewed and discussed with the resident team. Agree with plan of care as discussed with me and documented in the resident note (Luis Bruce MD) Problem List: (1) Atrial fibrillation with RVR Status: Acute Plan: CHADSVASc score of 4. Cardiology consulted; patient started on Xarelto and transitioned from Cardizem drip to 60 mg PO QID. Appreciate their expertise. Will see how patient does on Cardizem today and hopefully transition to a long-acting tomorrow. - ACS ruled out - TSH WNL - Telemetry (2) FEN/PPX Status: Acute Plan: - Fluids: Tolerating PO - Electrolytes: WNL - Nutrition: Heart healthy diet - DVT prophylaxis: Lovenox Chronic medical problems: - HTN: Continue home benazepril - CAD: Continue home atorvastatin and ASA - DM: SSI - BPH: Continue home Flomax sdw Dr. Bruce, Dr. Jerome, Dr. Martinez (Ct Smith MD) Ct Smith MD September 15, 2016 08:00 Luis Bruce MD September 15, 2016 20:16
--- NOTE | 2016-09-15 08:51 | MB ---
cc: LO MUJICA M.D., MARK B. M.D. JAMIDAR, HUMAYUN A. M.D. DATE OF CONSULTATION: 09/15/2016 REASON FOR CONSULTATION: Atrial fibrillation. HISTORY Mr. Yanes is a 76-year-old obese white male who was admitted to the hospital yesterday after presenting to the emergency room for feeling ill for the past day or so. He complained of some uneasiness feeling in his chest and some moderate exertional dyspnea. He had some mild lower extremity edema as well. He denied any lightheadedness or syncope. He had an evaluation for exertional dyspnea about two weeks ago here in the [facility] and had a normal nuclear myocardial perfusion scan. At that time he was in sinus rhythm. He was found to be in atrial fibrillation with a rapid ventricular response on admission yesterday here. He was placed on subcutaneous Lovenox and intravenous Cardizem and his rate has improved and he is feeling better this morning. PAST MEDICAL HISTORY: 1. Longstanding hypertension. 2. Palpitations. 3. Dyspnea on exertion. 4. Diabetes mellitus type 2. 5. Possible remote myocardial infarction in the 80s. 6. Hyperlipidemia. 7. BPH. 8. Sleep apnea syndrome and uses C-PAP He denies history of stroke, thyroid, liver or kidney disease. PAST SURGICAL HISTORY: Negative. ALLERGIES: None known. MEDICATIONS: 1. Diltiazem infusion for rate control. 2. Lisinopril 10 milligrams daily. 3. Lipitor 10 milligrams daily. 4. Aspirin 325 milligrams daily. 5. Cardizem 30 milligrams p.o. q.i.d. 6. Pepcid 20 milligrams daily. 7. Insulin, Novolin sliding scale. 8. Hydralazine 10 milligrams q6 hours p.r.n. high blood pressure. 9. Zofran 4 milligrams IV p.r.n. 10. Tylenol p.r.n. 11. Flomax 0.4 milligrams daily. 12. Pepcid 20 milligrams p.o. b.i.d. FAMILY HISTORY: Noncontributory. SOCIAL HISTORY: The patient denies tobacco, alcohol or illicit drug use. He tries to stay active and exercise frequently. REVIEW OF SYSTEMS: Some mild lower extremity edema. Denies claudication. Denies palpitations, lightheadedness or syncope. Denies exertional chest discomfort. Denies bleeding or clotting disorders. Except for that mentioned in the HPI, a complete 12 point review of systems is otherwise negative. PHYSICAL EXAMINATION: Reveals an elderly obese white male, sitting u p in bed, in no distress at this time. VITAL SIGNS: Blood pressure 116/67 mmHg, heart rate is 66 and irregular, respiratory rate 18, temperature 97.9, oxygen saturation 96% on 2 liters nasal cannula. Head: Head is normocephalic and atraumatic. Pupils equal, round and reactive to light. Sclerae anicteric. Extraocular movements intact. Neck: The neck is supple. There is no adenopathy. There is no jugular venous distention at 90 degrees. Carotid upstrokes are normal, no bruits. Thyroid exam is normal. Lungs: Clear. Heart: PMI is not displaced. S1-S2 are irregular. I hear no murmurs, rubs, or gallops. Abdomen: Bowel sounds present, soft, nontender. No hepatosplenomegaly, masses or bruits. Extremities: There is trace to +1 pretibial pitting edema bilaterally. Perfusion is adequate and pulses are strong in the upper and lower extremities. Neurologic: Grossly intact. EKG from yesterday 18:00 shows atrial fibrillation with a rapid ventricular response of 103 beats per minute. Leftward axis. Borderline IVCD. Abnormal EKG. Chest x-ray from yesterday shows a new mild streaky bilateral interstitial opacity which may represent early or mild pulmonary edema, mild blunting of the right costophrenic angle consistent with small effusion. LABORATORY DATA: CBC: White count of 7.5, hemoglobin 12.8, hematocrit 36.4, platelet count 195,000. Coags were normal. Chemistries are normal except for a sodium of 134. Glucose 206, calcium 8.8. CPK 86, Troponin-I less than 0.02 on three sets since admission. TSH 2.11. BUN is 16, creatinine 0.94. BNP 459 from 12 o'clock yesterday. IMPRESSION 1. Persistent atrial fibrillation, ventricular rate currently controlled on intravenous Cardizem. 2. Suspected mild heart failure with preserved ejection fraction. 3. Hypertensive heart disease, well-controlled. 4. Diabetes mellitus 5. Sleep apnea syndrome on C-PAP. 6. Obesity. RECOMMENDATIONS: The patient will be given intravenous furosemide 40 milligrams x1 dose now to help with his edema and mild congestive heart failure. His rate is much better controlled. I will change him over to oral Cardizem and discontinue the intravenous Cardizem at this time. We discussed importance and need for anticoagulation therapy for stroke prophylaxis. He has no contraindications and has agreed to start on Xarelto 20 milligrams daily. Will continue telemetry monitoring today and hemodynamic monitoring. Recheck electrolytes in the morning. Observe overnight and Dr. Espinal will follow up with him tomorrow, to determine further therapy and possible discharge to home. I discussed all the findings and plans above with the patient in detail and he appears to understand and agree with the recommendations. Thank you for allowing me to participate in the care of this patient. MD TRISTIAN Guillaume/BECKA /8:06 AM :24 AM
[2016-09-15] MEDS: LISINOPRIL 10 MG TAB PO SCH (08:57)
[2016-09-15] MEDS: FAMOTIDINE 20 MG TAB PO SCH ×2 (08:57→20:35)
[2016-09-15] MEDS: DILTIAZEM HCL 60 MG TAB PO SCH ×5 (08:58→20:35)
[2016-09-15] MEDS: SODIUM CHLORIDE 0.9% FLUSH 10 ML FLUSH IV FLUSH SCH ×2 (08:58→20:35)
[2016-09-15] MEDS: ATORVASTATIN 10 MG TAB PO SCH (08:58)
[2016-09-15] MEDS: RIVAROXABAN 20 MG TAB PO SCH (08:58)
[2016-09-15] MEDS: TAMSULOSIN HCL 0.4 MG CAP PO SCH (08:58)
[2016-09-15] MEDS ORDERED: FUROSEMIDE 40 MG/4 ML VIAL IV PUSH ONE (09:00)
[2016-09-15] MEDS ORDERED: ASPIRIN 325 MG TAB PO SCH (09:00)
[2016-09-15 10:22] LABS: AUTOMATED NEUTROPHIL # 6.1 TH/MM3 (1.8-7.7); BASOPHIL % 0.5 % (0.0-2.0); EOSINOPHIL # 0.1 TH/MM3 (0-0.4); EOSINOPHIL % 1.9 % (0.0-4.0); HEMATOCRIT 36.8 % (39.0-51.0); HEMO FLAGS DIFF FINAL; LYMPH % 10.7 % (9.0-44.0); LYMPHOCYTE # 0.8 TH/MM3 (1.0-4.8); MEAN CELL VOLUME 91.6 FL (80.0-100.0); MEAN CORPUSCULAR HEMOGLOBIN 31.4 PG (27.0-34.0); MEAN CORPUSCULAR HGB CONC 34.3 % (32.0-36.0); NEUT % 78.9 % (16.0-70.0); PLATELET COUNT 212 TH/MM3 (150-450); RED BLOOD COUNT 4.02 MIL/MM3 (4.50-5.90); RED CELL DISTRIBUTION WIDTH 12.8 % (11.6-17.2); WHITE BLOOD COUNT 7.7 TH/MM3 (4.0-11.0)
--- NOTE | 2016-09-15 10:36 | EKG ---
Date Performed: 09/15/2016 Time Performed: 01:30:42 PTAGE: 76 years EKG: Atrial fibrillation Electrical interferences Anterolateral T wave changes are nonspecific A bnormal ECG NO PREVIOUS TRACING DOCTOR: Alberto Meehan Interpretating Date/Time 09/15/2016 10:34:52
[2016-09-15 10:45] LABS: ALKALINE PHOSPHATASE 76 U/L (45-117); ALT (GPT) 37 U/L (12-78); ANION GAP 10 MEQ/L (5-15); AST (GOT) 16 U/L (15-37); BLOOD UREA NITROGEN 14 MG/DL (7-18); CHLORIDE 97 MEQ/L (98-107); GLOMERULAR FILTRATION RATE 68 ML/MIN (>89); POTASSIUM 3.6 MEQ/L (3.5-5.1); SODIUM (NA) 133 MEQ/L (136-145); TOTAL BILIRUBIN ADULT 0.9 MG/DL (0.2-1.0)
[2016-09-15] MEDS ORDERED: DILTIAZEM HCL 25 MG/5 ML VIAL IV ONE (11:00)
[2016-09-16] VITALS (11 sets, daily range): BP systolic 115–157; BP diastolic 59–84; PULSE 76–134; RESP 18–20; TEMP 97.3–98.2; O2SAT 93–99
[2016-09-16] MEDS: INSULIN NovoLIN REGULAR SUPPLEMENTAL SCALE SQ SCH ×4 (05:07→22:17)
[2016-09-16] MEDS: DILTIAZEM HCL 60 MG TAB PO SCH ×5 (05:38→22:09)
[2016-09-16 07:27] LABS: POTASSIUM 3.7 MEQ/L (3.5-5.1)
--- NOTE | 2016-09-16 09:05 | HHI.FPPN ---
Subjective Remarks Patient states he had a little bit of a rough night last night. He felt fluttering in his chest overnight. He had urinated over 9 times which is more than normal. Denied dysuria, fever, chills. No diarrhea. Objective Vitals Vital Signs Date Time Temp Pulse Resp B/P Pulse Ox O2 Delivery O2 Flow Rate FiO2 09/16/16 04:00 97.7 90 18 115/83 99 09/16/16 00:00 97.6 83 20 150/84 98 09/15/16 20:45 Bi-Pap 09/15/16 20:00 97.6 81 18 122/84 96 09/15/16 19:51 121 09/15/16 16:00 98.2 94 18 150/73 96 09/15/16 16:00 89 09/15/16 12:00 98.3 86 18 120/64 93 09/15/16 12:00 106 09/15/16 09:36 144 I/O 09/15/16 09/15/16 09/15/16 09/16/16 09/16/16 09/16/16 07:00 15:00 23:00 07:00 15:00 23:00 Intake Total 282 ml 3142 ml 242 ml Balance 282 ml 3142 ml 242 ml Intake Oral 240 ml 3140 ml 240 ml IV Total 42 ml 2 ml 2 ml # Voids 2 12 5 # Bowel Movements 0 2 0 Result Diagram: 09/15/16 0946 09/16/16 0425 Objective Remarks GENERAL: WN, WD male sitting up comfortably in bed in [facility]. SKIN: Warm and dry without rash. HEENT: Pupils equal and round. No nasal drainage. MMM. HEART: Tachycardic with irregularly irregular rhythm. LUNGS: CTAB w/o wheezes or crackles. ABDOMEN: Soft, NT, ND. EXTREMITIES: No LE edema. No calf tenderness. NEURO: Awake and alert. A/P Assessment and Plan 76 year old male admitted for shortness of breath and found to be in atrial fibrillation with RVR on this admission. BNP mildly elevated and CXR with some pulmonary congestion; shortness of breath improved with diuresis and patient transitioned from Cardizem drip to PO. Discharge Planning Anticipate D/C today or tomorrow. Problem List: (1) Atrial fibrillation with RVR Status: Acute Plan: CHADSVASc score of 4. Cardiology consulted; patient started on Xarelto and transitioned from Cardizem drip to 60 mg PO QID. -Tachycardic with rapid ventricular rate on 09/16, will give IV Cardizem 1. - Further therapy today by cardiology - ACS ruled out - TSH WNL - Telemetry (2) FEN/PPX Status: Acute Plan: - Fluids: Tolerating PO - Electrolytes: WNL - Nutrition: Heart healthy diet - DVT prophylaxis: Lovenox Chronic medical problems: - HTN: Continue home benazepril - CAD: Continue home atorvastatin and ASA - DM: SSI - BPH: Continue home Flomax Adriel Jerome MD R2 September 16, 2016 09:05
[2016-09-16] MEDS: SODIUM CHLORIDE 0.9% FLUSH 10 ML FLUSH IV FLUSH SCH ×2 (09:29→22:06)
[2016-09-16] MEDS: RIVAROXABAN 20 MG TAB PO SCH (09:29)
[2016-09-16] MEDS: TAMSULOSIN HCL 0.4 MG CAP PO SCH (09:29)
[2016-09-16] MEDS: LISINOPRIL 10 MG TAB PO SCH (09:30)
[2016-09-16] MEDS: FAMOTIDINE 20 MG TAB PO SCH ×2 (09:30→22:09)
[2016-09-16] MEDS: ATORVASTATIN 10 MG TAB PO SCH (09:30)
[2016-09-16] MEDS ORDERED: DILTIAZEM HCL 25 MG/5 ML VIAL IV ONE (10:00)
[2016-09-16 10:32] LABS: BLOOD, URINE NEG (NEG); GLUCOSE,URINE NEG (NEG); KETONE, URINE 10 mg/dL (NEG); NITRITE,URINE NEG (NEG); URINE COLOR YELLOW (YELLW/STRAW)
[2016-09-16 10:34] LABS: COMMENT (UR) CULT NOT INDICATED; CULTURE IF INDICATED CULT NOT INDICATED
--- NOTE | 2016-09-16 13:42 | PD.CARD.PN ---
Subjective Subjective Remarks Denies chest pain worried about HR and TESSA, had long discussion about this Objective Medications Administered Medications Medications (Trade) Dose Ordered Sig/Earl Route PRN Reason Start Time Stop Time Status Last Admin Dose Admin Sodium Chloride (NS Flush) 2 ml BID IV FLUSH 09/14/16 21:00 09/16/16 09:29 Acetaminophen (Tylenol) 650 mg Q6H PRN PO PAIN 09/14/16 14:45 09/14/16 22:08 Atorvastatin Calcium (Lipitor) 10 mg DAILY PO 09/15/16 09:00 09/16/16 09:30 Lisinopril (Prinivil) 10 mg DAILY PO 09/15/16 09:00 09/16/16 09:30 Tamsulosin HCl (Flomax) 0.4 mg DAILY PO 09/15/16 09:00 09/16/16 09:29 Famotidine (Pepcid) 20 mg BID PO 09/14/16 21:00 09/16/16 09:30 Rivaroxaban (Xarelto) 20 mg DAILY PO 09/15/16 09:00 09/16/16 09:29 Diltiazem HCl (Cardizem) 60 mg QID PO 09/16/16 05:30 09/16/16 12:53 Vital Signs / I&O Vital Signs Date Time Temp Pulse Resp B/P Pulse Ox O2 Delivery O2 Flow Rate FiO2 09/16/16 11:15 98.2 99 20 119/63 93 09/16/16 10:50 108 18 124/70 93 09/16/16 10:45 113 18 127/59 93 09/16/16 10:40 134 18 157/67 93 09/16/16 08:00 97.3 108 20 141/83 97 09/16/16 04:00 97.7 90 18 115/83 99 09/16/16 00:00 97.6 83 20 150/84 98 09/15/16 20:45 Bi-Pap 09/15/16 20:00 97.6 81 18 122/84 96 09/15/16 19:51 121 09/15/16 16:00 98.2 94 18 150/73 96 09/15/16 16:00 89 I/O 09/15/16 09/15/16 09/15/16 09/16/16 09/16/16 09/16/16 07:00 15:00 23:00 07:00 15:00 23:00 Intake Total 282 ml 3142 ml 242 ml Balance 282 ml 3142 ml 242 ml Intake Oral 240 ml 3140 ml 240 ml IV Total 42 ml 2 ml 2 ml # Voids 2 12 5 # Bowel Movements 0 2 0 Physical Exam GENERAL: Well-nourished, well-developed patient in no apparent distress. SKIN: Warm and dry. NECK: JVD normal - less than or equal to 5 cm H20. CARDIOVASCULAR: Regular rate and rhythm without murmurs, gallops or rubs. RESPIRATORY: Normal breath sounds - equal bilaterally. No accessory muscle use. No wheezes, rales or rubs. PERIPHERY: No cyanosis or edema. Laboratory Laboratory Tests Test 09/16/16 09/16/16 04:25 10:00 Sodium Level 138 MEQ/L Potassium Level 3.7 MEQ/L Chloride Level 102 MEQ/L Carbon Dioxide Level 25.0 MEQ/L Anion Gap 11 MEQ/L Blood Urea Nitrogen 14 MG/DL Creatinine 0.89 MG/DL Estimat Glomerular Filtration 83 ML/MIN Rate Random Glucose 162 MG/DL Calcium Level 8.8 MG/DL Urine Color YELLOW Urine Turbidity CLEAR Urine pH 7.0 Urine Specific Luna 1.010 Urine Protein NEG mg/dL Urine Glucose (UA) NEG mg/dL Urine Ketones 10 mg/dL Urine Occult Blood NEG Urine Nitrite NEG Urine Bilirubin NEG Urine Urobilinogen LESS THAN 2.0 MG/DL Urine Leukocyte Esterase NEG Urine RBC LESS THAN 1 /hpf Urine WBC 1 /hpf Microscopic Urinalysis Comment CULT NOT INDICATED Assessment and Plan Assessment and Plan Will add betablockers and reduce hypertension meds so as not to cause serious hypotension. Control HR further w/u as outpatient. Linda Espinal MD September 16, 2016 13:42
[2016-09-16] MEDS ORDERED: PILL SPLITTER OTHER PRN (13:45)
[2016-09-16] MEDS: METOPROLOL TARTRATE 25 MG TAB PO SCH ×2 (15:06→22:09)
[2016-09-17] VITALS (8 sets, daily range): BP systolic 104–131; BP diastolic 62–85; PULSE 58–138; RESP 16–20; TEMP 97.4–98.3; O2SAT 93–99
[2016-09-17] MEDS: INSULIN NovoLIN REGULAR SUPPLEMENTAL SCALE SQ SCH ×4 (06:19→21:40)
--- NOTE | 2016-09-17 07:47 | HHI.FPPN ---
Subjective Remarks Patient seen and examined this am. Vitals astable. Feels well. Denies CP. Slept well. Ambulatory without issues. Denies any SOB. EMR vitals incorrect. HR per nurse in the 150s, has been in 130s since 8:15am. Objective Vitals Vital Signs Date Time Temp Pulse Resp B/P Pulse Ox O2 Delivery O2 Flow Rate FiO2 09/17/16 06:36 97.7 91 18 113/81 94 09/17/16 04:00 Bi-Pap 09/17/16 00:00 Bi-Pap 09/17/16 00:00 97.6 81 18 127/71 99 09/16/16 20:00 Room Air 09/16/16 20:00 97.9 76 18 125/75 95 09/16/16 20:00 81 09/16/16 16:00 97.5 83 20 117/63 95 09/16/16 15:46 85 09/16/16 12:00 82 18 149/82 98 09/16/16 11:15 98.2 99 20 119/63 93 09/16/16 10:50 108 18 124/70 93 09/16/16 10:45 113 18 127/59 93 09/16/16 10:40 134 18 157/67 93 09/16/16 08:30 Room Air 09/16/16 08:00 97.3 108 20 141/83 97 I/O 09/16/16 09/16/16 09/16/16 09/17/16 09/17/16 09/17/16 07:00 15:00 23:00 07:00 15:00 23:00 Intake Total 242 ml 730 ml 240 ml 120 ml Output Total 300 ml 950 ml Balance 242 ml 730 ml -60 ml -830 ml Intake Oral 240 ml 720 ml 240 ml 120 ml IV Total 2 ml 10 ml Output Urine Total 300 ml 950 ml # Voids 5 4 1 # Bowel Movements 0 1 0 0 Result Diagram: 09/15/16 0946 09/16/16 0425 Imaging Last Impressions Chest X-Ray 09/14/16 1149 Signed Impressions: Service Date/Time: Wednesday, September 14, 2016 12:24 - CONCLUSION: 1. New mild streaky bilateral interstitial opacities which may represent early or mild pulmonary edema. 2. Mild blunting of the right costophrenic angle consistent with a small effusion. Felton Luque MD Objective Remarks GENERAL: WN, WD male sitting up comfortably in bed in NAD. SKIN: Warm and dry without rash. HEENT: Pupils equal and round. No nasal drainage. MMM. HEART: Tachycardic with irregularly irregular rhythm. LUNGS: CTAB w/o wheezes or crackles. ABDOMEN: Soft, NT, ND. EXTREMITIES: No LE edema. No calf tenderness. NEURO: Awake and alert. A/P Assessment and Plan 76 year old male admitted for shortness of breath and found to be in atrial fibrillation with RVR on this admission. BNP mildly elevated and CXR with some pulmonary congestion; shortness of breath improved with diuresis and patient transitioned from Cardizem drip to PO. Discharge Planning Anticipate D/C tomorrow pending better control of HR. discussed with Dr. Bruce Problem List: (1) Atrial fibrillation with RVR Status: Acute Plan: HR remains uncontrolled. Case discussed with nurse. Will make sure Dr. Espinal is aware of accurate HR so that medication adjustments can be made as necessary. CHADSVASc score of 4. Cardiology consulted; patient started on Xarelto and transitioned from Cardizem drip to - Cardizem 60 mg PO QID, metoprolol 25 mg PO BID - ACS ruled out - TSH WNL - Telemetry (2) FEN/PPX Status: Acute Plan: - Fluids: Tolerating PO - Electrolytes: WNL - Nutrition: Heart healthy diet - DVT prophylaxis: on xarelto Chronic medical problems: - HTN: Continue home benazepril - CAD: Continue home atorvastatin and ASA - DM: SSI - BPH: Continue home Flomax Greta Tabares MD R3 September 17, 2016 07:47
[2016-09-17] MEDS: SODIUM CHLORIDE 0.9% FLUSH 10 ML FLUSH IV FLUSH SCH ×2 (09:00→21:34)
[2016-09-17] MEDS: TAMSULOSIN HCL 0.4 MG CAP PO SCH (09:34)
[2016-09-17] MEDS: METOPROLOL TARTRATE 25 MG TAB PO SCH ×3 (09:34→21:36)
[2016-09-17] MEDS: LISINOPRIL 5 MG TAB PO SCH (09:34)
[2016-09-17] MEDS: DILTIAZEM HCL 60 MG TAB PO SCH ×4 (09:34→21:33)
[2016-09-17] MEDS: ATORVASTATIN 10 MG TAB PO SCH (09:34)
[2016-09-17] MEDS: FAMOTIDINE 20 MG TAB PO SCH ×2 (09:34→21:33)
[2016-09-17] MEDS: RIVAROXABAN 20 MG TAB PO SCH (09:34)
--- NOTE | 2016-09-17 18:39 | PD.CARD.PN ---
Subjective Subjective Remarks Better no chest pain or sob Objective Medications Administered Medications Medications (Trade) Dose Ordered Sig/Earl Route PRN Reason Start Time Stop Time Status Last Admin Dose Admin Sodium Chloride (NS Flush) 2 ml BID IV FLUSH 09/14/16 21:00 09/17/16 09:00 Acetaminophen (Tylenol) 650 mg Q6H PRN PO PAIN 09/14/16 14:45 09/14/16 22:08 Atorvastatin Calcium (Lipitor) 10 mg DAILY PO 09/15/16 09:00 09/17/16 09:34 Tamsulosin HCl (Flomax) 0.4 mg DAILY PO 09/15/16 09:00 09/17/16 09:34 Famotidine (Pepcid) 20 mg BID PO 09/14/16 21:00 09/17/16 09:34 Rivaroxaban (Xarelto) 20 mg DAILY PO 09/15/16 09:00 09/17/16 09:34 Diltiazem HCl (Cardizem) 60 mg QID PO 09/16/16 05:30 09/17/16 17:02 Lisinopril (Prinivil) 2.5 mg DAILY PO 09/17/16 09:00 09/17/16 09:34 Metoprolol Tartrate (Lopressor) 25 mg Q8HR PO 09/17/16 14:00 09/17/16 15:17 Vital Signs / I&O Vital Signs Date Time Temp Pulse Resp B/P Pulse Ox O2 Delivery O2 Flow Rate FiO2 09/17/16 16:00 97.4 64 20 104/65 93 09/17/16 12:00 97.5 102 20 116/78 96 09/17/16 09:42 138 09/17/16 09:00 131 09/17/16 08:00 Bi-Pap 09/17/16 08:00 98.3 82 20 131/85 96 09/17/16 06:36 97.7 91 18 113/81 94 09/17/16 04:00 Bi-Pap 09/17/16 00:00 Bi-Pap 09/17/16 00:00 97.6 81 18 127/71 99 09/16/16 20:00 Room Air 09/16/16 20:00 97.9 76 18 125/75 95 09/16/16 20:00 81 I/O 09/16/16 09/16/16 09/16/16 09/17/16 09/17/16 09/17/16 07:00 15:00 23:00 07:00 15:00 23:00 Intake Total 242 ml 730 ml 240 ml 120 ml 720 ml Output Total 300 ml 950 ml Balance 242 ml 730 ml -60 ml -830 ml 720 ml Intake Oral 240 ml 720 ml 240 ml 120 ml 720 ml IV Total 2 ml 10 ml 0 ml Output Urine Total 300 ml 950 ml # Voids 5 4 1 6 # Bowel Movements 0 1 0 0 0 Physical Exam GENERAL: Anxious SKIN: Warm and dry. NECK: JVD normal - less than or equal to 5 cm H20. CARDIOVASCULAR: Regular rate and rhythm without murmurs, gallops or rubs. RESPIRATORY: Normal breath sounds - equal bilaterally. No accessory muscle use. No wheezes, rales or rubs. PERIPHERY: No cyanosis or edema. PHOTO MASK PATTERN GENERATOR: grossly normal HR 61 now Laboratory Laboratory Tests Test 09/15/16 09/15/16 09/16/16 09/16/16 00:33 09:46 04:25 10:00 Troponin I LESS THAN 0.02 NG/ML (0.02-0.05) Red Blood Count 4.02 MIL/MM3 (4.50-5.90) Hemoglobin 12.6 GM/DL (13.0-17.0) Hematocrit 36.8 % (39.0-51.0) Neutrophils (%) (Auto) 78.9 % (16.0-70.0) Lymphocytes # (Auto) 0.8 TH/MM3 (1.0-4.8) Sodium Level 133 MEQ/L (136-145) Chloride Level 97 MEQ/L (98-107) Estimat Glomerular Filtration 68 ML/MIN (>89) 83 ML/MIN (>89) Rate Random Glucose 196 MG/DL 162 MG/DL (74-106) (74-106) Urine Ketones 10 mg/dL (NEG) Assessment and Plan Assessment and Plan Increased metoprolol, d/c tomorrow if HR controlled. Linda Espinal MD September 17, 2016 18:39
[2016-09-18] VITALS (11 sets, daily range): BP systolic 103–167; BP diastolic 72–96; PULSE 60–132; RESP 18–20; TEMP 97.7–98; O2SAT 97–98
[2016-09-18] MEDS: METOPROLOL TARTRATE 25 MG TAB PO SCH (05:47)
[2016-09-18] MEDS: INSULIN NovoLIN REGULAR SUPPLEMENTAL SCALE SQ SCH ×4 (05:54→20:51)
[2016-09-18] MEDS: SODIUM CHLORIDE 0.9% FLUSH 10 ML FLUSH IV FLUSH SCH ×2 (09:00→21:00)
--- NOTE | 2016-09-18 09:29 | HHI.FPPN ---
Subjective Remarks Patient feels fine. Reviewing telemetry, he has been in atrial fibrillation with heart rate over 120 on multiple occasions. According to nursing, when the patient is laying, or sitting down, his heart rate is less than 100. However, whenever he gets up to go to the bathroom or walking around the room, his heart rate is greater than 110. Patient is asymptomatic. No fever, chills. Objective Vitals Vital Signs Date Time Temp Pulse Resp B/P Pulse Ox O2 Delivery O2 Flow Rate FiO2 09/18/16 08:00 Room Air 09/18/16 07:00 132 09/18/16 04:00 97.8 79 20 132/79 97 09/18/16 00:44 61 09/18/16 00:00 98.0 75 18 118/72 98 09/17/16 22:00 Room Air 09/17/16 20:00 97.5 58 16 120/62 96 09/17/16 16:00 97.4 64 20 104/65 93 09/17/16 16:00 Room Air 09/17/16 12:00 97.5 102 20 116/78 96 09/17/16 12:00 Room Air 09/17/16 09:42 138 I/O 09/17/16 09/17/16 09/17/16 09/18/16 09/18/16 09/18/16 07:00 15:00 23:00 07:00 15:00 23:00 Intake Total 120 ml 720 ml 240 ml 240 ml Output Total 950 ml 800 ml Balance -830 ml 720 ml 240 ml -560 ml Intake Oral 120 ml 720 ml 240 ml 240 ml IV Total 0 ml Output Urine Total 950 ml 800 ml # Voids 6 0 2 # Bowel Movements 0 0 0 0 Result Diagram: 09/15/16 0946 09/16/16 0425 Objective Remarks GENERAL: WN, WD male sitting up comfortably in bed in NAD. SKIN: Warm and dry without rash. HEENT: Pupils equal and round. No nasal drainage. MMM. HEART: Tachycardic with irregularly irregular rhythm. LUNGS: CTAB w/o wheezes or crackles. ABDOMEN: Soft, NT, ND. EXTREMITIES: No LE edema. No calf tenderness. NEURO: Awake and alert. A/P Assessment and Plan 76 year old male admitted for shortness of breath and found to be in atrial fibrillation with RVR on this admission. Cardiology consulted. Transition to by mouth Cardizem and metoprolol, however continues to have rapid rate. Discharge Planning Anticipate discharge when heart rate is controlled. Problem List: (1) Atrial fibrillation with RVR Status: Acute Plan: HR remains uncontrolled. Case discussed with nurse. Will make sure Dr. Espinal is aware of accurate HR so that medication adjustments can be made as necessary. CHADSVASc score of 4. Cardiology consulted; patient started on Xarelto and transitioned from Cardizem drip to: - Cardizem 60 mg PO QID, metoprolol 25 mg PO every 8 hours - ACS ruled out - TSH WNL - Telemetry (2) FEN/PPX Status: Acute Plan: - Fluids: Tolerating PO - Electrolytes: WNL - Nutrition: Heart healthy diet - DVT prophylaxis: on xarelto Chronic medical problems: - HTN: Continue home benazepril - CAD: Continue home atorvastatin and ASA - DM: SSI - BPH: Continue home Flomax Adriel Jerome MD R2 September 18, 2016 09:29
[2016-09-18] MEDS: LISINOPRIL 5 MG TAB PO SCH (09:56)
[2016-09-18] MEDS: FAMOTIDINE 20 MG TAB PO SCH ×2 (09:56→20:49)
[2016-09-18] MEDS: DILTIAZEM HCL 60 MG TAB PO SCH (09:56)
[2016-09-18] MEDS: ATORVASTATIN 10 MG TAB PO SCH (09:56)
[2016-09-18] MEDS: RIVAROXABAN 20 MG TAB PO SCH (09:56)
[2016-09-18] MEDS: TAMSULOSIN HCL 0.4 MG CAP PO SCH (09:56)
[2016-09-18] MEDS ORDERED: DILTIAZEM-CD 240 MG CAP ER PO ONE (10:15)
[2016-09-18] MEDS: METOPROLOL TARTRATE 50 MG TAB PO SCH ×2 (12:09→20:49)
--- NOTE | 2016-09-18 18:18 | PD.CARD.PN ---
Subjective Subjective Remarks Anxious but better hr79 Objective Medications Administered Medications Medications (Trade) Dose Ordered Sig/Earl Route PRN Reason Start Time Stop Time Status Last Admin Dose Admin Sodium Chloride (NS Flush) 2 ml BID IV FLUSH 09/14/16 21:00 09/18/16 09:00 Acetaminophen (Tylenol) 650 mg Q6H PRN PO PAIN 09/14/16 14:45 09/14/16 22:08 Atorvastatin Calcium (Lipitor) 10 mg DAILY PO 09/15/16 09:00 09/18/16 09:56 Tamsulosin HCl (Flomax) 0.4 mg DAILY PO 09/15/16 09:00 09/18/16 09:56 Famotidine (Pepcid) 20 mg BID PO 09/14/16 21:00 09/18/16 09:56 Rivaroxaban (Xarelto) 20 mg DAILY PO 09/15/16 09:00 09/18/16 09:56 Lisinopril (Prinivil) 2.5 mg DAILY PO 09/17/16 09:00 09/18/16 09:56 Metoprolol Tartrate (Lopressor) 50 mg Q12HR PO 09/18/16 12:00 09/18/16 12:09 Vital Signs / I&O Vital Signs Date Time Temp Pulse Resp B/P Pulse Ox O2 Delivery O2 Flow Rate FiO2 09/18/16 12:10 97.7 87 18 103/75 97 09/18/16 09:00 93 09/18/16 08:10 97.9 110 18 167/96 97 09/18/16 08:00 Room Air 09/18/16 07:00 132 09/18/16 04:00 97.8 79 20 132/79 97 09/18/16 00:44 61 09/18/16 00:00 98.0 75 18 118/72 98 09/17/16 22:00 Room Air 09/17/16 20:00 97.5 58 16 120/62 96 I/O 09/17/16 09/17/16 09/17/16 09/18/16 09/18/16 09/18/16 07:00 15:00 23:00 07:00 15:00 23:00 Intake Total 120 ml 720 ml 240 ml 240 ml 0 ml Output Total 950 ml 800 ml Balance -830 ml 720 ml 240 ml -560 ml 0 ml Intake Oral 120 ml 720 ml 240 ml 240 ml IV Total 0 ml 0 ml Output Urine Total 950 ml 800 ml # Voids 6 0 2 # Bowel Movements 0 0 0 0 Physical Exam GENERAL: Anxious SKIN: Warm and dry. NECK: JVD normal - less than or equal to 5 cm H20. CARDIOVASCULAR: Regular rate and rhythm without murmurs, gallops or rubs. RESPIRATORY: Normal breath sounds - equal bilaterally. No accessory muscle use. No wheezes, rales or rubs. PERIPHERY: No cyanosis or edema. OBGYN NURSE: grossly normal HR now Laboratory Laboratory Tests Test 09/16/16 09/16/16 04:25 10:00 Estimat Glomerular Filtration 83 ML/MIN (>89) Rate Random Glucose 162 MG/DL (74-106) Urine Ketones 10 mg/dL (NEG) Assessment and Plan Assessment and Plan Increased metoprolol and diltiazem; d/c tomorrow if HR controlled. Linda Espinal MD September 18, 2016 18:18
[2016-09-19] VITALS: BP 122/70; PULSE 69; RESP 18; TEMP 97.4; O2SAT 97
[2016-09-19 01:43] VITALS: PULSE 57
[2016-09-19 04:00] VITALS: BP 113/59; PULSE 72; RESP 18; TEMP 98.1; O2SAT 99
[2016-09-19] MEDS: INSULIN NovoLIN REGULAR SUPPLEMENTAL SCALE SQ SCH ×2 (06:00→12:14)
[2016-09-19 08:00] VITALS: BP 133/88; PULSE 90; RESP 20; TEMP 98.3; O2SAT 95
--- NOTE | 2016-09-19 08:05 | HHI.FPPN ---
Subjective Remarks Pt seen and examined this morning. AFVSS. No acute events overnight. HR has improved and ranges from 60-90s. Patient states he is doing well and is ready to go home. Denies CP, SOB, palpitations, abdominal pain, nausea, vomiting. Tolerating PO. Ambulating without issues. Objective Vitals Vital Signs Date Time Temp Pulse Resp B/P Pulse Ox O2 Delivery O2 Flow Rate FiO2 09/19/16 04:00 98.1 72 18 113/59 99 09/19/16 01:43 57 09/19/16 00:00 97.4 69 18 122/70 97 09/18/16 21:58 71 09/18/16 20:50 98 Room Air 09/18/16 20:10 97.9 81 19 134/87 97 09/18/16 20:00 60 09/18/16 16:09 97.9 63 18 123/76 97 09/18/16 12:10 97.7 87 18 103/75 97 09/18/16 09:00 93 09/18/16 08:10 97.9 110 18 167/96 97 I/O 09/18/16 09/18/16 09/18/16 09/19/16 09/19/16 09/19/16 06:59 14:59 22:59 06:59 14:59 22:59 Intake Total 240 ml 480 ml 220 ml 120 ml Output Total 800 ml Balance -560 ml 480 ml 220 ml 120 ml Intake Oral 240 ml 480 ml 220 ml 120 ml IV Total 0 ml Output Urine Total 800 ml # Voids 2 6 3 2 # Bowel Movements 0 1 0 0 Result Diagram: 09/15/16 0946 09/16/16 0425 Objective Remarks GENERAL: WN, WD male laying down comfortably in bed in NAD. SKIN: Warm and dry without rash. HEENT: Pupils equal and round. No nasal drainage. MMM. HEART: RRR no m/r/g. LUNGS: CTAB w/o wheezes or crackles. ABDOMEN: Soft, NT, ND. EXTREMITIES: No LE edema. No calf tenderness. NEURO: Awake and alert. A/P Assessment and Plan 76 year old male admitted for shortness of breath and found to be in atrial fibrillation with RVR on this admission. Cardiology consulted and HR has stabilized on PO Cardizem and metoprolol. Discharge Planning D/C home today. Problem List: (1) Atrial fibrillation with RVR Status: Acute Plan: HR has normalized. CHADSVASc score of 4. TSH WNL and ACS ruled out. - Cardiology consulted; patient started on Xarelto and transitioned from Cardizem drip to: * Cardizem 240 mg PO daily * Metoprolol 50 mg PO BID - Telemetry (2) FEN/PPX Status: Acute Plan: - Fluids: Tolerating PO - Electrolytes: WNL - Nutrition: Heart healthy diet - DVT prophylaxis: On Xarelto Chronic medical problems: - HTN: Continue home benazepril - CAD: Continue home atorvastatin and ASA - DM: SSI. Resume home meds on D/C - BPH: Continue home Flomax erick Smith,Ct Ashley MD September 19, 2016 08:05
--- NOTE | 2016-09-19 08:07 | HHI.DCPOC ---
Discharge Care Plan Diagnosis: (1) Atrial fibrillation with RVR Goals to Promote Your Health * To prevent worsening of your condition and complications * To maintain your health at the optimal level Directions to Meet Your Goals Take your medications as prescribed Follow your dietary instruction Follow activity as directed Keep your appointments as scheduled Take your immunizations and boosters as scheduled If your symptoms worsen call your PCP, if no PCP go to Urgent Care Center or Emergency Room Smoking is Dangerous to Your Health. Avoid second hand smoke Call the 24-hour hour crisis hotline for domestic abuse at [address] Smith MD September 19, 2016 08:07
[2016-09-19] MEDS: LISINOPRIL 5 MG TAB PO SCH (08:31)
[2016-09-19] MEDS: TAMSULOSIN HCL 0.4 MG CAP PO SCH (08:31)
[2016-09-19] MEDS: ATORVASTATIN 10 MG TAB PO SCH (08:31)
[2016-09-19] MEDS: FAMOTIDINE 20 MG TAB PO SCH (08:31)
[2016-09-19] MEDS: METOPROLOL TARTRATE 50 MG TAB PO SCH (08:32)
[2016-09-19] MEDS: RIVAROXABAN 20 MG TAB PO SCH (08:32)
[2016-09-19] MEDS: SODIUM CHLORIDE 0.9% FLUSH 10 ML FLUSH IV FLUSH SCH (08:36)
[2016-09-19] MEDS ORDERED: DILTIAZEM-CD 240 MG CAP ER PO SCH (09:00)
[2016-09-19] MEDS ORDERED: CARD240C6 PO (10:28)
[2016-09-19] MEDS ORDERED: METO-309 PO (10:28)
[2016-09-19] MEDS ORDERED: XARE20TA PO (10:28)
--- NOTE | 2016-09-19 10:34 | HHI.DS ---
Discharge Summary Admission Date September 14, 2016 at 13:38 Discharge Date: September 19, 2016 Admitting Diagnosis acute atrial fibrillation on RVR, acute CHF (1) Atrial fibrillation with RVR Plan: HR has normalized. CHADSVASc score of 4. TSH WNL and ACS ruled out. - Cardiology consulted; patient started on Xarelto and transitioned from Cardizem drip to: * Cardizem 240 mg PO daily * Metoprolol 50 mg PO BID - Telemetry Consultants Cardiology Brief History This is a 76-year-old male with a history concerning for paroxysmal atrial fibrillation. He was seen at [facility] for a couple of days beginning September 02. At that time he was admitted to the chest pain center because of exertional dyspnea. He was probably an intermittent atrial fibrillation. He was evaluated with a myocardial perfusion scan which was determined low risk. Since that time complains of continued exertional dyspnea. His had multiple episodes where "he has felt his chest fluttering "and has felt chest pressure. This happened all last weekend. He visited with his PCP, Dr. Toth. He was placed on metoprolol 25 mg by mouth twice a day since Friday. He states he has been taking his medication as prescribed, including this morning. He has been getting more short of breath and feels like the metoprolol makes him more short of breath. But he also states the metoprolol "calms things down." He has not been able to walk to the garage without becoming short of breath. Normally he can walk much further. He also has been feeling weak. He had an appointment with a control supervisor, Dr. Espinal, this coming Friday. He denies chest pain. CBC/BMP: 09/15/16 0946 09/16/16 0425 PE at Discharge GENERAL: WN, WD male laying down comfortably in bed in NAD. SKIN: Warm and dry without rash. HEENT: Pupils equal and round. No nasal drainage. MMM. HEART: RRR no m/r/g. LUNGS: CTAB w/o wheezes or crackles. ABDOMEN: Soft, NT, ND. EXTREMITIES: No LE edema. No calf tenderness. NEURO: Awake and alert. Hospital Course 76 year old male with HTN, CAD, and DM admitted on 09/14 for shortness of breath and found to be in atrial fibrillation with RVR. Patient was placed on a Cardizem drip and cardiology was consulted. He was transitioned to PO Cardizem and metoprolol and discharged in stable condition on 09/19. Pt Condition on Discharge: Stable Discharge Disposition: Discharge Home Discharge Instructions DIET: Follow Instructions for: Heart Healthy Diet, Diabetic Diet Activities you can perform: Regular-No Restrictions Follow up Referrals: Cardiology - 1 Week with Linda Espinal MD PCP Follow-up - 1 Week New Medications: Diltiazem CD 24 HR (Cardizem CD 24 HR) 240 Mg Caper 240 MG PO DAILY #30 Ref 0 CAP Metoprolol Tartrate (Lopressor) 50 Mg Tab 50 MG PO Q12HR #60 Ref 0 TAB Rivaroxaban (Xarelto) 20 Mg Tab 20 MG PO DAILY #30 Ref 0 TAB Continued Medications: Aspirin (Aspirin) 325 Mg Tab 325 MG PO DAILY #30 Ref 0 TAB Atorvastatin (Atorvastatin) 10 Mg Tab 10 MG PO DAILY Cholesterol Management #30 Ref 0 TAB Benazepril (Benazepril) 5 Mg Tab 10 MG PO DAILY Blood Pressure Management #60 Ref 0 TAB Pioglitazone (Pioglitazone) 15 Mg Tab 15 MG PO HS Blood Sugar Management #30 Ref 0 TAB Ranitidine (Ranitidine) 150 Mg Tab 150 MG PO BID Heartburn Management #60 Ref 0 TAB Saxagliptin-Metformin ER (Kombiglyze Xr) 5-1,000 Mg Tab 1 TAB PO HS Blood Sugar Management #30 Ref 0 TAB Tamsulosin (Tamsulosin) 0.4 Mg Cap 0.4 MG PO DAILY Manage Prostate Problems #30 Ref 0 CAP Discontinued Medications: Metoprolol Tartrate (Metoprolol Tartrate) 25 Mg Tab 25 MG PO BID #60 Ref 0 TAB Pioglitazone (Pioglitazone) 15 Mg Tab 15 MG PO DAILY Blood Sugar Management #[address] Smith MD September 19, 2016 10:34
[2016-09-19 12:00] VITALS: BP 129/84; PULSE 92; RESP 20; TEMP 97.4; O2SAT 97
== END 2016-09-19 11:53 | disposition home or self-care (01) | DRG 310 ==
LOC: NEPE 11:41 → NEDA 13:38 → N04A 15:26
PROVIDERS: ADMIT Family Medicine; ATTEND Family Medicine
DX: I48.1 Persistent atrial fibrillation (principal); I50.9 Heart failure, unspecified; I11.0 Hypertensive heart disease with heart failure; E11.9 Type 2 diabetes mellitus without complications; I25.10 Atherosclerotic heart disease of native coronary artery without angina pectoris; N40.0 Benign prostatic hyperplasia without lower urinary tract symptoms; E66.9 Obesity, unspecified; G47.30 Sleep apnea, unspecified; Z68.33 Body mass index [BMI] 33.0-33.9, adult; E78.5 Hyperlipidemia, unspecified; Z79.84 Long term (current) use of oral hypoglycemic drugs; Z81.1 Family history of alcohol abuse and dependence; Z82.49 Family history of ischemic heart disease and other diseases of the circulatory system; Z86.73 Personal history of transient ischemic attack (TIA), and cerebral infarction without residual deficits
CPT/HCPCS: 71020; 80048; 80053; 81001; 82550; 82948; 83735; 83880; 84439; 84443; 84484; 85025; 85610; 85730; 93005; 96374; J1650; J1940

== ENCOUNTER 2016-11-20 12:27 | Day surgery (SDC) | payer MEDICARE, BC ==
[~2016-11-20 12:27] MED LIST changes: +CARD240C6 PO; +METO-309 PO; +XARE20TA PO
[2016-11-20] MEDS ORDERED: XARE20TA PO (13:41)
[2016-11-20] MEDS ORDERED: AMIO200T PO (13:41)
[2016-11-20] MEDS ORDERED: SPIR25TA PO (13:41)
[2016-11-20] MEDS ORDERED: ATOR20TA15 PO (13:41)
[2016-11-20] MEDS ORDERED: DILT-64 PO (13:41)
[2016-11-20] MEDS ORDERED: METO50TA PO (13:41)
[2016-11-20] MEDS ORDERED: FURO1TAB60 PO (13:41)
[2016-11-20] MEDS ORDERED: METOPROLOL TARTRATE 25 MG TAB PO PRN (15:15)
[2016-11-20] MEDS ORDERED: SODIUM CHLORID 0.9% 500 ML IV PRN (15:15)
[2016-11-20] MEDS ORDERED: LACTATED RINGER'S 1000 ML IV PRN (15:15)
[2016-11-20] MEDS ORDERED: POVIDONE IODINE 5% (ANTISEPSIS KIT) 4 APPLICATIONS EACH NARE PRN (15:15)
[2016-11-20] MEDS ORDERED: INSULIN HUMAN REGULAR 1,000 UNITS/10 ML VIAL SQ PRN (15:15)
[2016-11-20] MEDS ORDERED: CHLORHEXIDINE GLUCONATE 2 % 1 PACK (2 CLOTHS) TOPICAL PRN (15:15)
--- NOTE | 2016-11-20 16:24 | EKG ---
Date Performed: 11/20/2016 Time Performed: 13:21:06 PTAGE: 76 years EKG: Atrial fibrillation. Left axis deviation Nonspecific intraventricular conduction delay Late ral ST-T changes are nonspecific Abnormal ECG PREVIOUS TRACING : 09/15/2016 01.30 No significant change from previous tracing noted. DOCTOR: Sabino Hutchins Interpretating Date/Time 11/20/2016 16:23:07
--- NOTE | 2016-11-20 19:44 | EKG ---
Date Performed: 11/20/2016 Time Performed: 15:18:58 PTAGE: 76 years EKG: Sinus rhythm . Left axis deviation Nonspecific intraventricular conduction delay Lateral T wave changes are nonspe cific Abnormal ECG PREVIOUS TRACING : 11/20/2016 13.21 Compared to previous tracing, sinus rhythm has replaced atr ial fibrillation. DOCTOR: Sabino Hutchins Interpretating Date/Time 11/20/2016 19:42:20
--- NOTE | 2016-11-21 11:48 | CF ---
cc: LINDA ESPINAL M.D., MARK PROCEDURE PERFORMED Transesophageal echo. INDICATION 1. Rule out left atrial appendage thrombus. 2. Clear the patient for cardioversion. 3. Assess mitral and tricuspid vegetation. PROCEDURE The patient was draped and prepped in the usual manner. The patient was anesthetized as per the Anesthesia Department and full SALLIE performed. FINDINGS Left atrial appendage was free of thrombus. The aortic valve is trileaflet. Mitral valve is mildly thickened. The tricuspid valve shows evidence of moderate tricuspid regurgitation. LV function is normal. The interatrial septum is intact. The interventricular septum is intact. The aorta visualized to 40 cm, shows some mild plaquing. CONCLUSION No evidence of left atrial appendage. Proceed with cardioversion. Linda Espinal MD, CP,[facility] HAJ/TLL /3:22 PM /11:44 AM
--- NOTE | 2016-11-21 11:56 | MR ---
cc: LINDA ESPINAL M.D., MARK DATE: 11/20/2016 PROCEDURE PERFORMED Cardioversion. INDICATION Atrial fibrillation. CONSENT Full informed consent was obtained prior to the procedure. The risks of , bleeding, aspiration, perforation, foreseen and unforeseen complications, cardiac arrest were explained for both the transesophageal echo and the cardioversion. PROCEDURE The patient was anesthetized by Anesthesia Department. Full SALLIE was performed and following this the patient was given a 200 joules synchronized shock which converted him to sinus rhythm. CONCLUSION Successful cardioversion from atrial fibrillation to sinus rhythm. PLAN Will plan to discharge the patient later today. Will follow up in my office in 1-[address] Toth in due course. Linda Espinal MD, FRCP,[facility] HAJ/TLL /3:23 PM /11:51 AM
== END 2016-11-20 16:57 | disposition home or self-care (01) ==
LOC: HCAT 12:27 → HDIC 12:28 → HCAT 16:57
PROVIDERS: ATTEND Internal Medicine Cardiovascular Disease
DX: I48.91 Unspecified atrial fibrillation (principal); R06.02 Shortness of breath; M79.89 Other specified soft tissue disorders; Z79.01 Long term (current) use of anticoagulants
CPT/HCPCS: 92960; 93005; 93312; 93320; 93325